=== PATIENT | male | born 1945 | race Caucasian/White ===

== ENCOUNTER 2017-06-08 09:27 | Inpatient (IN) | payer OTHER, MEDICARE ==
[~2017-06-08] VITALS: Ht 177.8 cm; Wt 81.0 kg
[~2017-06-08 09:27] MED LIST: ASPI81CH PO; ATEN25 PO; BUTASPCAFT; FOLI1; HYDACE5; LEVSOD25; LITH300ER PO; LITH450ER; METH10; NIAC500; NITR.4SL SL; OMEPRAZOLE MAGN20 MG PO; PROM25; TEMA30; VENL75; Zocor20 MG PO
[2017-06-08] MEDS ORDERED: AMLO5 PO (09:46)
[2017-06-08] MEDS ORDERED: DULO30 PO (09:48)
[2017-06-08] MEDS ORDERED: GABA600 PO (09:49)
[2017-06-08] MEDS ORDERED: BISA5EC PO (09:50)
[2017-06-08] MEDS ORDERED: AKWA Tears15 ML BOTHEYES (09:51)
[2017-06-08] MEDS ORDERED: OXYC5 PO (09:52)
[2017-06-08] MEDS ORDERED: GAVILAX17 GM PO (09:53)
[2017-06-08] MEDS ORDERED: Viagra100 MG PO (09:55)
[2017-06-08] MEDS ORDERED: AZIT250 PO (09:57)
[2017-06-08] MEDS ORDERED: Tessalon200 MG PO (09:58)
[2017-06-08] MEDS ORDERED: Acetaminophen-1 EAC1 PO (09:59)
[2017-06-08] MEDS ORDERED: Ceftriaxon1 GM/50 ML IV (10:00)
[2017-06-08] MEDS ORDERED: ENOX40I SC (10:01)
[2017-06-08] MEDS ORDERED: NICO21TP TD (10:02)
[2017-06-08 10:14] LABS: BASOPHILS ABSOLUTE AUTO 0.03 K/mm3 (0.00-0.23); BASOPHILS PERCENT AUTO 0 % (0-2); EOSINOPHILS PERCENT AUTO 0 % (0-6); Hematocrit 32.7 % (37.0-53.0); Hemoglobin 10.8 g/dL (13.5-17.5); IMMATURE GRAN ABSOLUTE AUTO 0.36 K/mm3 (0.00-0.10); IMMATURE GRAN PERCENT AUTO 3 % (0-1); LYMPHOCYTES ABSOLUTE AUTO 1.39 K/mm3 (0.84-5.20); LYMPHOCYTES PERCENT AUTO 10 % (21-46); MONOCYTES ABSOLUTE AUTO 1.55 K/mm3 (0.16-1.47); MONOCYTES PERCENT AUTO 11 % (4-13); Mean Corpuscular HGB 30.7 pg (26.0-34.0); Mean Corpuscular Volume 93 fL (80-100); Mean Platelet Volume 9.1 fL (9.1-12.4); NEUTROPHILS PERCENT AUTO 77 % (41-73); Platelet Count 379 K/mm3 (150-400); RDW Coefficient Variation 14.8 % (11.7-14.2); RDW Standard Deviation 50.9 fL (35.1-46.3); Red Blood Cell Count 3.52 M/mm3 (4.30-5.90); White Blood Cell Count 14.23 K/mm3 (4.00-11.30)
[2017-06-08] MEDS ORDERED: POTCHL20ER PO (10:25)
[2017-06-08 10:27] LABS: Anion Gap 9 mmol/L (6-16); Blood Urea Nitrogen 3 mg/dL (8-24); Bun/Creatinine Ratio 6.3 (12.0-20.0); CO2, Blood 26 mmol/L (21-32); Calcium, Blood 7.9 mg/dL (8.5-10.1); Chloride, Blood 106 mmol/L (98-108); Creatinine, Blood 0.48 mg/dL (0.60-1.20); Glomerular Filtration Rate >60 (60-); Glucose, Blood 104 mg/dL (70-99); Potassium, Blood 3.1 mmol/L (3.5-5.5); Sodium, Blood 141 mmol/L (136-145)
[2017-06-08] MEDS ORDERED: 1/2 NS 250ml250 ML IV (10:28)
[2017-06-08] MEDS ORDERED: CHILD MUCUS RE118 ML PO (10:30)
[2017-06-08] MEDS ORDERED: ALBU3IS INH (10:30)
[2017-06-09 04:43] LABS: BASOPHILS ABSOLUTE AUTO 0.03 K/mm3 (0.00-0.23); BASOPHILS PERCENT AUTO 0 % (0-2); EOSINOPHILS PERCENT AUTO 0 % (0-6); Hematocrit 33.9 % (37.0-53.0); Hemoglobin 11.2 g/dL (13.5-17.5); IMMATURE GRAN ABSOLUTE AUTO 0.44 K/mm3 (0.00-0.10); IMMATURE GRAN PERCENT AUTO 3 % (0-1); LYMPHOCYTES ABSOLUTE AUTO 0.88 K/mm3 (0.84-5.20); LYMPHOCYTES PERCENT AUTO 6 % (21-46); MONOCYTES ABSOLUTE AUTO 0.48 K/mm3 (0.16-1.47); MONOCYTES PERCENT AUTO 3 % (4-13); Mean Corpuscular HGB 30.6 pg (26.0-34.0); Mean Corpuscular Volume 93 fL (80-100); Mean Platelet Volume 8.8 fL (9.1-12.4); NEUTROPHILS PERCENT AUTO 88 % (41-73); Platelet Count 458 K/mm3 (150-400); RDW Coefficient Variation 14.7 % (11.7-14.2); RDW Standard Deviation 50.8 fL (35.1-46.3); Red Blood Cell Count 3.66 M/mm3 (4.30-5.90); White Blood Cell Count 14.83 K/mm3 (4.00-11.30)
[2017-06-09 05:08] LABS: Alanine Aminotransfer (ALT/SGP 60 U/L (12-78); Albumin/Globulin Ratio 0.4 (0.8-1.8); Alk Phos 65 U/L (50-136); Anion Gap 7 mmol/L (6-16); Aspartate Aminotrans (AST/SGOT 40 U/L (12-37); Bilirubin, Total 0.5 mg/dL (0.1-1.0); Blood Urea Nitrogen 11 mg/dL (8-24); Bun/Creatinine Ratio 23.4 (12.0-20.0); CHOL/HDL RATIO 8.3; CO2, Blood 27 mmol/L (21-32); Calcium, Blood 8.3 mg/dL (8.5-10.1); Chloride, Blood 104 mmol/L (98-108); Cholesterol 125 mg/dL (50-200); Creatinine, Blood 0.47 mg/dL (0.60-1.20); Globulin, Blood 5.1 g/dL (2.2-4.0); Glomerular Filtration Rate >60 (60-); Glucose, Blood 135 mg/dL (70-99); HDL Cholesterol 15 mg/dL (>39); LDL/HDL RATIO 5.5; Low Density Lipoprotein Chol 83 mg/dL (0-110); Magnesium, Blood 2.3 mg/dL (1.6-2.4); Sodium, Blood 138 mmol/L (136-145); Total Protein, Blood 7.1 g/dL (6.4-8.2); Triglycerides 135 mg/dL (30-160); Very Low Density Lipoprot Chol 27 mg/dL (6-32)
[2017-06-09 05:16] LABS: Thyroid Stimulating Hormone 0.137 uIU/mL (0.360-4.800)
[2017-06-09 14:46] LABS: Free Thyroxine 1.13 ng/dL (0.70-1.60)
[2017-06-09 14:50] LABS: Triiodothyronine, Free 1.08 pg/mL (2.18-3.98)
[2017-06-10 05:11] LABS: Hematocrit 33.7 % (37.0-53.0); Mean Corpuscular HGB 30.7 pg (26.0-34.0); Mean Corpuscular HGB Conc 32.6 g/dL (31.5-36.5); Mean Corpuscular Volume 94 fL (80-100); Mean Platelet Volume 8.9 fL (9.1-12.4); Platelet Count 530 K/mm3 (150-400); RDW Coefficient Variation 14.7 % (11.7-14.2); RDW Standard Deviation 51.9 fL (35.1-46.3); Red Blood Cell Count 3.58 M/mm3 (4.30-5.90); White Blood Cell Count 24.37 K/mm3 (4.00-11.30)
[2017-06-10 05:33] LABS: Anion Gap 7 mmol/L (6-16); Blood Urea Nitrogen 20 mg/dL (8-24); CO2, Blood 26 mmol/L (21-32); Calcium, Blood 8.1 mg/dL (8.5-10.1); Chloride, Blood 105 mmol/L (98-108); Creatinine, Blood 0.53 mg/dL (0.60-1.20); Glomerular Filtration Rate >60 (60-); Glucose, Blood 180 mg/dL (70-99); Potassium, Blood 4.1 mmol/L (3.5-5.5); Sodium, Blood 138 mmol/L (136-145)
[2017-06-11 05:18] LABS: BASOPHILS ABSOLUTE AUTO 0.03 K/mm3 (0.00-0.23); BASOPHILS PERCENT AUTO 0 % (0-2); EOSINOPHILS PERCENT AUTO 0 % (0-6); Hematocrit 33.5 % (37.0-53.0); Hemoglobin 10.7 g/dL (13.5-17.5); IMMATURE GRAN ABSOLUTE AUTO 0.63 K/mm3 (0.00-0.10); IMMATURE GRAN PERCENT AUTO 3 % (0-1); LYMPHOCYTES ABSOLUTE AUTO 0.91 K/mm3 (0.84-5.20); LYMPHOCYTES PERCENT AUTO 5 % (21-46); MONOCYTES ABSOLUTE AUTO 0.65 K/mm3 (0.16-1.47); MONOCYTES PERCENT AUTO 3 % (4-13); Mean Corpuscular HGB 30.3 pg (26.0-34.0); Mean Corpuscular HGB Conc 31.9 g/dL (31.5-36.5); Mean Corpuscular Volume 95 fL (80-100); Mean Platelet Volume 8.8 fL (9.1-12.4); NEUTROPHILS ABSOLUTE AUTO 18.22 K/mm3 (1.96-9.15); NEUTROPHILS PERCENT AUTO 89 % (41-73); Platelet Count 528 K/mm3 (150-400); RDW Standard Deviation 52.8 fL (35.1-46.3); Red Blood Cell Count 3.53 M/mm3 (4.30-5.90); White Blood Cell Count 20.44 K/mm3 (4.00-11.30)
[2017-06-11 05:47] LABS: Anion Gap 8 mmol/L (6-16); Blood Urea Nitrogen 22 mg/dL (8-24); Bun/Creatinine Ratio 37.4 (12.0-20.0); CO2, Blood 25 mmol/L (21-32); Calcium, Blood 8.1 mg/dL (8.5-10.1); Chloride, Blood 103 mmol/L (98-108); Creatinine, Blood 0.59 mg/dL (0.60-1.20); Glomerular Filtration Rate >60 (60-); Glucose, Blood 136 mg/dL (70-99); Potassium, Blood 4.4 mmol/L (3.5-5.5); Sodium, Blood 136 mmol/L (136-145)
[2017-06-13 04:36] LABS: Hemoglobin 11.6 g/dL (13.5-17.5); Mean Corpuscular HGB 30.4 pg (26.0-34.0); Mean Corpuscular HGB Conc 32.2 g/dL (31.5-36.5); Mean Corpuscular Volume 95 fL (80-100); Mean Platelet Volume 8.8 fL (9.1-12.4); Platelet Count 558 K/mm3 (150-400); RDW Coefficient Variation 14.6 % (11.7-14.2); Red Blood Cell Count 3.81 M/mm3 (4.30-5.90); White Blood Cell Count 19.58 K/mm3 (4.00-11.30)
[2017-06-13 05:00] LABS: Anion Gap 7 mmol/L (6-16); Blood Urea Nitrogen 24 mg/dL (8-24); Bun/Creatinine Ratio 39.9 (12.0-20.0); CO2, Blood 28 mmol/L (21-32); Chloride, Blood 102 mmol/L (98-108); Glomerular Filtration Rate >60 (60-); Glucose, Blood 103 mg/dL (70-99); Potassium, Blood 4.2 mmol/L (3.5-5.5); Sodium, Blood 137 mmol/L (136-145)
[2017-06-13] MEDS ORDERED: GABA300 PO (11:01)
[2017-06-13] MEDS ORDERED: Acidophilus La1 EACH PO (11:18)
[2017-06-13] MEDS ORDERED: PRED10 PO (11:21)
[2017-06-13] MEDS ORDERED: ALBU90OI6 INH (11:22)
[2017-06-13] MEDS ORDERED: BUDE.5 INH (11:24)
[2017-06-13] MEDS ORDERED: TIOT18 INH (11:25)
[2017-06-13] MEDS ORDERED: LEVFLO500 PO (11:25)
== END 2017-06-13 14:45 | disposition home or self-care (01) | DRG 193 ==
LOC: ER 09:27 → MEDS 12:12 → ENPENDDIS 06-13 09:05 → MEDS 06-13 14:45
PROVIDERS: Emergency Medicine; Internal Medicine
DX: J18.9 Pneumonia, unspecified organism (principal); J96.01 Acute respiratory failure with hypoxia; G71.0 Muscular dystrophy; J44.0 Chronic obstructive pulmonary disease with (acute) lower respiratory infection; J44.1 Chronic obstructive pulmonary disease with (acute) exacerbation; K52.1 Toxic gastroenteritis and colitis; E03.9 Hypothyroidism, unspecified; K21.9 Gastro-esophageal reflux disease without esophagitis; R53.81 Other malaise; G89.4 Chronic pain syndrome; E87.6 Hypokalemia; D64.9 Anemia, unspecified; I25.10 Atherosclerotic heart disease of native coronary artery without angina pectoris; I73.9 Peripheral vascular disease, unspecified; I10 Essential (primary) hypertension; E78.5 Hyperlipidemia, unspecified; J84.10 Pulmonary fibrosis, unspecified; T36.95XA Adverse effect of unspecified systemic antibiotic, initial encounter; F31.9 Bipolar disorder, unspecified; Z87.891 Personal history of nicotine dependence; Z79.82 Long term (current) use of aspirin; Z79.899 Other long term (current) drug therapy; Z88.8 Allergy status to other drugs, medicaments and biological substances
CPT/HCPCS: 36415; 71260; 80048; 80053; 80061; 83605; 83735; 84439; 84443; 84481; 85025; 85027; 87040; 87070; 87205; 87493; 94640; 94667; 94760; 97161; 97165; 97530; 99285; G8978; G8979; G8987; G8988; G8989; J1650; J1956; J2930; Q9967

== ENCOUNTER 2021-07-08 16:43 | Inpatient (IN) | payer OTHER ==
[~2021-07-08] VITALS: Ht 177.8 cm; Wt 83.2 kg
[~2021-07-08 16:43] MED LIST changes: +1/2 NS 250ml250 ML IV; +AKWA Tears15 ML BOTHEYES; +ALBU2.5V5 INH; +ALBU90OI6 INH; +AMLO5 PO; +AZIT250 PO; +Acetaminophen-1 EAC1 PO; +Acidophilus La1 EACH PO; +BISA5EC PO; +BUDE.5 INH; +CHILD MUCUS RE118 ML PO; +Ceftriaxon1 GM/50 ML IV; +DULO30 PO; +ENOX40I SC; +GABA300 PO; +GABA600 PO; +GAVILAX17 GM PO; +LEVFLO500 PO; +NICO21TP TD; +OXYC5 PO; +POTCHL20ER PO; +PRED10 PO; +TIOT18 INH; +Tessalon200 MG PO; +Viagra100 MG PO
[2021-07-08 17:28] LABS: BASOPHILS ABSOLUTE AUTO 0.02 K/mm3 (0.00-0.23); BASOPHILS PERCENT AUTO 0 % (0-2); EOSINOPHILS PERCENT AUTO 0 % (0-6); Hematocrit 43.4 % (37.0-53.0); Hemoglobin 13.6 g/dL (13.5-17.5); IMMATURE GRAN ABSOLUTE AUTO 0.09 K/mm3 (0.00-0.10); IMMATURE GRAN PERCENT AUTO 1 % (0-1); LYMPHOCYTES ABSOLUTE AUTO 0.93 K/mm3 (0.84-5.20); LYMPHOCYTES PERCENT AUTO 6 % (21-46); MONOCYTES ABSOLUTE AUTO 0.88 K/mm3 (0.16-1.47); MONOCYTES PERCENT AUTO 5 % (4-13); Mean Corpuscular HGB 29.2 pg (26.0-34.0); Mean Corpuscular HGB Conc 31.3 g/dL (31.5-36.5); Mean Corpuscular Volume 93 fL (80-100); Mean Platelet Volume 9.7 fL (9.1-12.4); NEUTROPHILS ABSOLUTE AUTO 14.78 K/mm3 (1.96-9.15); NEUTROPHILS PERCENT AUTO 89 % (41-73); Platelet Count 267 K/mm3 (150-400); RDW Coefficient Variation 13.5 % (11.7-14.2); RDW Standard Deviation 46.6 fL (35.1-46.3); Red Blood Cell Count 4.65 M/mm3 (4.30-5.90)
[2021-07-08 17:45] LABS: Alanine Aminotransfer (ALT/SGP 20 U/L (12-78); Albumin, Blood 3.5 g/dL (3.4-5.0); Albumin/Globulin Ratio 0.9 (0.8-1.8); Alk Phos 68 U/L (50-136); Anion Gap 5 mmol/L (6-16); Aspartate Aminotrans (AST/SGOT 14 U/L (12-37); Bilirubin, Total 1.1 mg/dL (0.1-1.0); Blood Urea Nitrogen 17 mg/dL (8-24); Bun/Creatinine Ratio 25.8 (12.0-20.0); CO2, Blood 25 mmol/L (21-32); Calcium, Blood 8.7 mg/dL (8.5-10.1); Chloride, Blood 114 mmol/L (98-108); Creatinine, Blood 0.66 mg/dL (0.60-1.20); Globulin, Blood 3.7 g/dL (2.2-4.0); Glomerular Filtration Rate >60 (60-); Glucose, Blood 145 mg/dL (70-99); Potassium, Blood 3.6 mmol/L (3.5-5.5); Sodium, Blood 144 mmol/L (136-145); Total Protein, Blood 7.2 g/dL (6.4-8.2)
[2021-07-08 18:04] LABS: Influenza A, PCR NEGATIVE (NEGATIVE); Influenza B, PCR NEGATIVE (NEGATIVE); Resp Syncytial Virus, PCR NEGATIVE (NEGATIVE); SARS-Cov-2 (COVID-19) PCR, MMC NEGATIVE (NEGATIVE)
--- NOTE | 2021-07-08 22:48 | NUR ---
Report received from Alesia ONEILL from ED Patient arrived to room 354 on [address], independent transfer from stretcher to bed. Patient is A/O X4, baseline 2.5 L 02 Patient oriented to room, call light system, bed alarm activated requested patient to call allowing staff to supervise ambulation prior to allowing ADLIB mobilization.
--- NOTE | 2021-07-09 03:05 | NUR ---
([id number]) When completing admission assessment post transfer to unit from ED, patient reported taking personal supply of home oxycodone in Emergency Dept. Patient informs oxycodone was in his shirt pocket and he took 2-3 tablets of 5mg Oxycodone at approximately 2000. Vital signs stable, A/0 X4. Education provided of hospital policy of taking home supply medication. Patient reported no additional medication in personal posession and agreed to comply in not taking home supply external source medications while in hospital. notified ([id number])
--- NOTE | 2021-07-09 03:40 | NUR ---
Patient ambulatory, A/0 X4, complained of chronic pain during shift 9/10 back pain and acute headache. Pain relieved with Oxycodone and Acetaminophen. Adequate intake- Pt ate 100% of meal (Tet[place] sandwich & Jello) 500 ml water Vitals remained stable. Patient able to rest comfortably throughout the night.
[2021-07-09 05:13] LABS: BASOPHILS ABSOLUTE AUTO 0.05 K/mm3 (0.00-0.23); BASOPHILS PERCENT AUTO 0 % (0-2); EOSINOPHILS ABSOLUTE AUTO 0.04 K/mm3 (0.00-0.68); EOSINOPHILS PERCENT AUTO 0 % (0-6); Hematocrit 38.7 % (37.0-53.0); Hemoglobin 12.4 g/dL (13.5-17.5); IMMATURE GRAN ABSOLUTE AUTO 0.16 K/mm3 (0.00-0.10); IMMATURE GRAN PERCENT AUTO 1 % (0-1); LYMPHOCYTES PERCENT AUTO 13 % (21-46); MONOCYTES ABSOLUTE AUTO 1.33 K/mm3 (0.16-1.47); MONOCYTES PERCENT AUTO 7 % (4-13); Mean Corpuscular HGB 29.7 pg (26.0-34.0); Mean Corpuscular Volume 93 fL (80-100); Mean Platelet Volume 10.1 fL (9.1-12.4); NEUTROPHILS PERCENT AUTO 79 % (41-73); Platelet Count 245 K/mm3 (150-400); RDW Coefficient Variation 13.6 % (11.7-14.2); RDW Standard Deviation 46.4 fL (35.1-46.3); Red Blood Cell Count 4.17 M/mm3 (4.30-5.90); White Blood Cell Count 20.58 K/mm3 (4.00-11.30)
[2021-07-09 05:40] LABS: Anion Gap 5 mmol/L (6-16); Blood Urea Nitrogen 18 mg/dL (8-24); Bun/Creatinine Ratio 30.3 (12.0-20.0); CO2, Blood 26 mmol/L (21-32); Calcium, Blood 8.3 mg/dL (8.5-10.1); Chloride, Blood 111 mmol/L (98-108); Creatinine, Blood 0.59 mg/dL (0.60-1.20); Glomerular Filtration Rate >60 (60-); Glucose, Blood 99 mg/dL (70-99); Potassium, Blood 3.5 mmol/L (3.5-5.5); Sodium, Blood 142 mmol/L (136-145)
--- NOTE | 2021-07-09 17:04 | NUR ---
SHIFT SUMMARY PATIENT IS ALERT AND ORIENTED X4. PATIENT IS PLEASENT AND COOPERATIVE WITH CARE. PATIENT IS ON HIS BASELINE OF 2.5L O2. PATIENT IS ADMITTED FOR PNUMONIA. PATIENT HAS CHRONIC PAIN IN HIS LEGS AND BACK. MEDICATED PER EMAR. PATIENT HAS BEEN MEDICATED FOR PAIN BUT NO OTHER COMPLAINTS OF NAUSEA, SOB OR VOMITTING THIS SHIFT. VITAL SIGNS REVIEWED. NO ACUTE EVENTS THIS SHIFT. BED IN LOWEST AND LOCKED POSITION. BED ALARM IS ON. CALL LIGHT IN PLACE. WILL MONITOR UNTIL SHIFT CHANGE.
[2021-07-10 05:21] LABS: BASOPHILS ABSOLUTE AUTO 0.02 K/mm3 (0.00-0.23); BASOPHILS PERCENT AUTO 0 % (0-2); EOSINOPHILS ABSOLUTE AUTO 0.12 K/mm3 (0.00-0.68); EOSINOPHILS PERCENT AUTO 1 % (0-6); Hemoglobin 12.6 g/dL (13.5-17.5); IMMATURE GRAN ABSOLUTE AUTO 0.04 K/mm3 (0.00-0.10); IMMATURE GRAN PERCENT AUTO 0 % (0-1); LYMPHOCYTES ABSOLUTE AUTO 2.48 K/mm3 (0.84-5.20); LYMPHOCYTES PERCENT AUTO 21 % (21-46); MONOCYTES ABSOLUTE AUTO 0.91 K/mm3 (0.16-1.47); MONOCYTES PERCENT AUTO 8 % (4-13); Mean Corpuscular HGB 29.2 pg (26.0-34.0); Mean Corpuscular HGB Conc 30.7 g/dL (31.5-36.5); Mean Corpuscular Volume 95 fL (80-100); Mean Platelet Volume 9.9 fL (9.1-12.4); NEUTROPHILS PERCENT AUTO 70 % (41-73); Platelet Count 246 K/mm3 (150-400); RDW Coefficient Variation 13.7 % (11.7-14.2); RDW Standard Deviation 48.1 fL (35.1-46.3); Red Blood Cell Count 4.32 M/mm3 (4.30-5.90); White Blood Cell Count 11.87 K/mm3 (4.00-11.30)
--- NOTE | 2021-07-10 05:39 | NUR ---
SHIFT SUMMARY: RESPIRATORY STATUS STABLE DURING SHIFT, CONTINUED ON 2.5L O2 (BASELINE). PT REPORTED CONTINUED CHRONIC BACK PAIN DURING THE NIGHT, DECLINED PAIN MEDICATIONS/INTERVENTIONS, AGREED TO INFORM WHEN NEEDING FURTHER PAIN MEDICATIONS. VITALS REMAINED STABLE THROUGHOUT SHIFT. PATIENT AMBULATORY TO BATHROOM INDEPENDENTLY, STABLE ON FEET NO DIZZYNESS. PATIENT RESTED OFF/ON THROUGHOUT SHIFT.
[2021-07-10 05:42] LABS: Alanine Aminotransfer (ALT/SGP 17 U/L (12-78); Albumin/Globulin Ratio 0.8 (0.8-1.8); Alk Phos 60 U/L (50-136); Anion Gap 6 mmol/L (6-16); Aspartate Aminotrans (AST/SGOT 12 U/L (12-37); Bilirubin, Total 1.3 mg/dL (0.1-1.0); Blood Urea Nitrogen 14 mg/dL (8-24); Bun/Creatinine Ratio 23.3 (12.0-20.0); CO2, Blood 26 mmol/L (21-32); Calcium, Blood 8.8 mg/dL (8.5-10.1); Chloride, Blood 110 mmol/L (98-108); Glomerular Filtration Rate >60 (60-); Glucose, Blood 86 mg/dL (70-99); Potassium, Blood 3.5 mmol/L (3.5-5.5); Sodium, Blood 142 mmol/L (136-145)
--- NOTE | 2021-07-10 07:51 | NUR ---
MAI recvd handoff patient care from MAI Humphries Patient was awake and complained that he was cold. RN put a warm blanket on him. He was thankful and had no more requests
--- NOTE | 2021-07-10 16:48 | NUR ---
Patient was alert and orient, He had requests to turn up the heat because he "was cold all night". Patient was indep with cares only putting on the light for minimum needs. Patient was compliant with taking medications and requested prn Oxycodone for pain. Patient appetite was fair, He stayed in the bed and napped throughout the shift. He was able to tranfer indep to the chair and back to the bed
--- NOTE | 2021-07-11 04:49 | NUR ---
PATIENT REMAINED ON 2.5 L 02- BASELINE HOME A/O X4, INDEPENDENT AMBULATION TO AND FROM BATHROOM CHRONIC PAIN MANAGED WITH OXYCODONE- ONLY REQUIRED 1X DOSE, DECLINED FURTHER PAIN MED INTERVENTIONS THROUGHOUT SHIFT.
--- NOTE | 2021-07-11 08:02 | NUR ---
MAI recvd handoff of patient care from MAI Humphries Patient was awake and alert. He had no requests at this time
[2021-07-11 08:20] LABS: Hemoglobin 12.7 g/dL (13.5-17.5); Mean Corpuscular HGB 29.3 pg (26.0-34.0); Mean Corpuscular HGB Conc 31.8 g/dL (31.5-36.5); Mean Corpuscular Volume 92 fL (80-100); Mean Platelet Volume 9.5 fL (9.1-12.4); Platelet Count 267 K/mm3 (150-400); RDW Coefficient Variation 13.2 % (11.7-14.2); RDW Standard Deviation 44.8 fL (35.1-46.3); Red Blood Cell Count 4.34 M/mm3 (4.30-5.90); White Blood Cell Count 10.59 K/mm3 (4.00-11.30)
[2021-07-11] MEDS ORDERED: AZIT250 PO (11:54)
[2021-07-11] MEDS ORDERED: BENZ100A PO (11:55)
[2021-07-11] MEDS ORDERED: CEFD300 PO (11:55)
[2021-07-11] MEDS ORDERED: GUAI600T33 PO (11:56)
[2021-07-11] MEDS ORDERED: ONDA4ODT MM (11:56)
[2021-07-11] MEDS ORDERED: MIRALAX17 GM PO (11:57)
--- NOTE | 2021-07-11 14:08 | NUR ---
Patient was alert and orient, he was able to express his needs by using the call light. Patient was indep in the room with his cares. He was continent of bowel and bladder. He is on oxygen 2.5L which is also his baseline. He had no complaints of pain, Continued to antibiotics IV and will continue on oral antibiotics when he discharges. Patient will be discharging today and will pick him up this afternoon
--- NOTE | 2021-07-11 14:47 | NUR ---
Patient was dicharged to home,, accompanied off of the unit by and RN. RN reviewed discharge instructions and medication list. Patient had no further questions and was appropriate for discharge. IV was removed and belongings were packed in a bag.
== END 2021-07-11 14:36 | disposition home or self-care (01) | DRG 871 ==
LOC: ER 16:43 → MEDS 19:10
PROVIDERS: Internal Medicine; Physician Assistant; ADMIT Internal Medicine
PROC: 3E02329 Introduction of Other Anti-infective into Muscle, Percutaneous Approach (ICD-10-PCS; principal; 2021-07-09)
PROC: 3E0337Z Introduction of Electrolytic and Water Balance Substance into Peripheral Vein, Percutaneous Approach (ICD-10-PCS; 2021-07-09)
DX: A41.9 Sepsis, unspecified organism (principal); J18.9 Pneumonia, unspecified organism; J96.11 Chronic respiratory failure with hypoxia; I73.9 Peripheral vascular disease, unspecified; E78.5 Hyperlipidemia, unspecified; I25.10 Atherosclerotic heart disease of native coronary artery without angina pectoris; J44.9 Chronic obstructive pulmonary disease, unspecified; F32.A Depression, unspecified; Z90.49 Acquired absence of other specified parts of digestive tract; D72.829 Elevated white blood cell count, unspecified; Z20.822 Contact with and (suspected) exposure to COVID-19
CPT/HCPCS: 0241U; 36415; 71046; 80048; 80053; 85025; 85027; 87070; 87205; 94640; 94760; 96365; 96375; 99285-25; A9270; J0456; J0696; J1650; J2405; J7050

== ENCOUNTER 2021-11-14 23:59 | Emergency (ER) | payer OTHER ==
[~2021-11-14] VITALS: Ht 177.8 cm; Wt 68.0 kg
[~2021-11-14 23:59] MED LIST changes: +BENZ100A PO; +CEFD300 PO; +DOXY100 PO; +GUAI600T33 PO; +MIRALAX17 GM PO; +ONDA4ODT MM; +PRED20 PO
[2021-11-15 00:42] LABS: BASOPHILS ABSOLUTE AUTO 0.03 K/mm3 (0.00-0.23); BASOPHILS PERCENT AUTO 0 % (0-2); EOSINOPHILS ABSOLUTE AUTO 0.08 K/mm3 (0.00-0.68); EOSINOPHILS PERCENT AUTO 1 % (0-6); Hematocrit 43.8 % (37.0-53.0); Hemoglobin 14.2 g/dL (13.5-17.5); IMMATURE GRAN PERCENT AUTO 1 % (0-1); LYMPHOCYTES ABSOLUTE AUTO 1.52 K/mm3 (0.84-5.20); LYMPHOCYTES PERCENT AUTO 10 % (21-46); MONOCYTES ABSOLUTE AUTO 1.23 K/mm3 (0.16-1.47); MONOCYTES PERCENT AUTO 8 % (4-13); Mean Corpuscular HGB 29.1 pg (26.0-34.0); Mean Corpuscular HGB Conc 32.4 g/dL (31.5-36.5); Mean Corpuscular Volume 90 fL (80-100); Mean Platelet Volume 9.7 fL (9.1-12.4); NEUTROPHILS ABSOLUTE AUTO 12.48 K/mm3 (1.96-9.15); NEUTROPHILS PERCENT AUTO 80 % (41-73); Platelet Count 240 K/mm3 (150-400); RDW Coefficient Variation 15.3 % (11.7-14.2); RDW Standard Deviation 50.5 fL (35.1-46.3); Red Blood Cell Count 4.88 M/mm3 (4.30-5.90); White Blood Cell Count 15.54 K/mm3 (4.00-11.30)
[2021-11-15 01:03] LABS: Albumin, Blood 3.1 g/dL (3.4-5.0); Albumin/Globulin Ratio 0.9 (0.8-1.8); Bilirubin, Total 0.9 mg/dL (0.1-1.0); Bun/Creatinine Ratio 35.5 (12.0-20.0); Calcium, Blood 8.3 mg/dL (8.5-10.1); Creatinine, Blood 0.59 mg/dL (0.60-1.20); Globulin, Blood 3.6 g/dL (2.2-4.0); Potassium, Blood 3.6 mmol/L (3.5-5.5); Total Protein, Blood 6.7 g/dL (6.4-8.2)
[2021-11-15] MEDS ORDERED: AMOCLA875 PO ×2 (01:42→01:43)
== END 2021-11-15 02:10 | disposition home or self-care (01) ==
LOC: ER 23:59
PROVIDERS: Anesthesiology
DX: J44.1 Chronic obstructive pulmonary disease with (acute) exacerbation (principal); J18.9 Pneumonia, unspecified organism; I10 Essential (primary) hypertension; I25.10 Atherosclerotic heart disease of native coronary artery without angina pectoris; Z79.899 Other long term (current) drug therapy; Z79.82 Long term (current) use of aspirin; Z87.891 Personal history of nicotine dependence
CPT/HCPCS: 71045; 80053; 83880; 84484; 85025; 93005; 93010; 94640; 94664; A9270; J1100

== ENCOUNTER 2023-06-16 16:33 | Inpatient (IN) | payer OTHER ==
[~2023-06-16] VITALS: Ht 182.9 cm; Wt 84.5 kg
[~2023-06-16 16:33] MED LIST changes: +AMOCLA875 PO
[2023-06-16] MEDS ORDERED: Albuterol 2.5 MG/3 ML VIAL INH SCH (17:10)
[2023-06-16 17:28] LABS: Hematocrit 37.9 % (37.0-53.0); Hemoglobin 11.9 g/dL (13.5-17.5); Mean Corpuscular HGB 27.9 pg (26.0-34.0); Mean Corpuscular HGB Conc 31.4 g/dL (31.5-36.5); Mean Corpuscular Volume 89 fL (80-100); Mean Platelet Volume 9.6 fL (9.1-12.4); Platelet Count 310 K/mm3 (150-400); RDW Coefficient Variation 14.6 % (11.7-14.2); RDW Standard Deviation 47.7 fL (35.1-46.3); Red Blood Cell Count 4.27 M/mm3 (4.30-5.90); White Blood Cell Count 10.08 K/mm3 (4.00-11.30)
[2023-06-16 17:48] LABS: Albumin, Blood 2.6 g/dL (3.4-5.0); Albumin/Globulin Ratio 0.5 (0.8-1.8); Bun/Creatinine Ratio 36.9 (12.0-20.0); Calcium, Blood 8.7 mg/dL (8.5-10.1); Creatinine, Blood 0.79 mg/dL (0.60-1.20); Potassium, Blood 3.2 mmol/L (3.5-5.5); Total Protein, Blood 7.6 g/dL (6.4-8.2)
[2023-06-16 17:49] LABS: BAND PERCENT MAN 5 % (0-8); BASOPHILS PERCENT MAN 1 % (0-2); EOSINOPHILS PERCENT MAN 0 % (0-6); LYMPHOCYTES ABSOLUTE MAN 1.61 K/mm3 (0.84-5.20); LYMPHOCYTES PERCENT MAN 16 % (21-46); MONOCYTES PERCENT MAN 5 % (4-13); NEUTROPHILS ABSOLUTE MAN 7.86 K/mm3 (1.96-9.15); SEG NEUTROPHILS PERCENT MAN 73 % (41-73); TOTAL CELLS COUNTED 100
[2023-06-16] MEDS ORDERED: NS 1,000 ML IV SCH (18:15)
[2023-06-16] MEDS ORDERED: FLU VACC QS2023-24(6MOS UP)/PF 60 MCG/0.5 ML SYRINGE IM SCH (19:15)
[2023-06-16] MEDS ORDERED: Acetaminophen 325 MG TABLET PO PRN (19:15)
[2023-06-16] MEDS ORDERED: Albuterol 2.5 MG/3 ML VIAL INH PRN (19:20)
[2023-06-16] MEDS ORDERED: MethylPREDNISolone Sod Succ 125 MG Vial IV ONE (19:20)
[2023-06-16] MEDS ORDERED: Ipratropium/Albuterol SulF 2.5-0.5MG/3 ML Amp INH SCH ×2 (19:20→21:05)
[2023-06-16] MEDS ORDERED: Benzonatate 100 MG Cap PO PRN (19:25)
[2023-06-16] MEDS ORDERED: Azithromycin 500 MG in NS 250 ML IV SCH (19:30)
[2023-06-16 19:32] LABS: Base Excess Venous 0.5 mmol/L; Bicarbonate Venous 24.7 mmol/L (24.0-30.0); PCO2 Venous 37.5 mmHg (38-42); pH Blood Venous 7.43 (7.34-7.37)
[2023-06-16] MEDS ORDERED: Atenolol 25 MG Tab PO SCH (20:00)
[2023-06-16] MEDS ORDERED: Potassium Chloride 20 MEQ TabCR PO ONE (20:00)
[2023-06-16 20:04] LABS: Influenza A, PCR NEGATIVE (NEGATIVE); Influenza B, PCR NEGATIVE (NEGATIVE); Resp Syncytial Virus, PCR NEGATIVE (NEGATIVE); SARS-Cov-2 (COVID-19) PCR, MMC NEGATIVE (NEGATIVE)
[2023-06-16] MEDS ORDERED: Gabapentin 300 MG Cap PO SCH (21:00)
[2023-06-16] MEDS ORDERED: GuaiFENesin 600 MG TabCR PO SCH (21:00)
[2023-06-16] MEDS ORDERED: Lactobacil 2-S.Thermo-Bifido 1 1 Cap PO SCH (21:00)
[2023-06-16 21:27] VITALS: BP 147/83
[2023-06-17] MEDS ORDERED: MethylPREDNISolone Sod Succ 125 MG Vial IV SCH
[2023-06-17 02:02] VITALS: BP 144/75
[2023-06-17 06:00] LABS: BASOPHILS ABSOLUTE AUTO 0.03 K/mm3 (0.00-0.23); BASOPHILS PERCENT AUTO 0 % (0-2); Hematocrit 35.3 % (37.0-53.0); Hemoglobin 11.2 g/dL (13.5-17.5); LYMPHOCYTES ABSOLUTE AUTO 0.88 K/mm3 (0.84-5.20); LYMPHOCYTES PERCENT AUTO 10 % (21-46); MONOCYTES ABSOLUTE AUTO 0.38 K/mm3 (0.16-1.47); MONOCYTES PERCENT AUTO 4 % (4-13); Mean Corpuscular HGB 28.1 pg (26.0-34.0); Mean Corpuscular HGB Conc 31.7 g/dL (31.5-36.5); Mean Corpuscular Volume 89 fL (80-100); Mean Platelet Volume 9.9 fL (9.1-12.4); Platelet Count 332 K/mm3 (150-400); RDW Coefficient Variation 14.7 % (11.7-14.2); RDW Standard Deviation 47.8 fL (35.1-46.3); Red Blood Cell Count 3.99 M/mm3 (4.30-5.90); White Blood Cell Count 9.03 K/mm3 (4.00-11.30)
[2023-06-17 06:04] LABS: EOSINOPHILS PERCENT AUTO 0 % (0-6); IMMATURE GRAN ABSOLUTE AUTO 0.06 K/mm3 (0.00-0.10); IMMATURE GRAN PERCENT AUTO 1 % (0-1); NEUTROPHILS ABSOLUTE AUTO 7.68 K/mm3 (1.96-9.15); NEUTROPHILS PERCENT AUTO 85 % (41-73)
--- NOTE | 2023-06-17 06:19 | NUR ---
Shift Summary Pt admitted to this unit from ED with dx of COPD exaserbation and bilateral pnumonia. He is currently on 7.5L O2 high flow NC with moisturizer to maintane O2 saturation of 92%. His baseline at home is 3L O2. Per report from the ED, when he stood up he quickly desaturated town to 70% while on 5L, so he us currently on bedrest. His lungs are coarse and wheezy, he is rcving RT treatments and steriods. Educated on fire safety, pt states he does not have any ignition sources with him. He is on continous pulse ox. He is AOx4, cooperative with care, and continent.
[2023-06-17 06:42] LABS: Bun/Creatinine Ratio 33.6 (12.0-20.0); Calcium, Blood 8.4 mg/dL (8.5-10.1); Creatinine, Blood 0.63 mg/dL (0.60-1.20)
[2023-06-17 07:18] VITALS: BP 141/75
[2023-06-17] MEDS ORDERED: Budesonide 0.5 MG/2 ML RESP INH SCH (07:45)
[2023-06-17] MEDS ORDERED: NS 250 ML IV PRN (08:10)
[2023-06-17] MEDS ORDERED: AmLODIPine Besylate 5 MG Tab PO SCH (09:00)
[2023-06-17] MEDS ORDERED: CefTRIAXone Sodium 1,000 MG in NS 50 ML IV SCH (09:00)
[2023-06-17] MEDS ORDERED: Aspirin 81 MG Chew PO SCH (09:00)
[2023-06-17] MEDS ORDERED: Enoxaparin 40 MG/0.4 ML SYR SC SCH (09:00)
[2023-06-17] MEDS ORDERED: DULoxetine HCL 30 MG Cap DR PO SCH (09:00)
[2023-06-17] MEDS ORDERED: OxyCODONE HCL 5 MG TAB PO PRN (12:50)
--- NOTE | 2023-06-17 15:49 | NUR ---
DR. RED NOTIFIED OF CONCERN FOR PT LETHARGIC AND TEA COLORED URINE. NO NEW ORDERS AT THIS TIME. RN TO ENCOURAGE INCREASE PO INTAKE. ALSO PT PRODUCING SPUTUM. WE WILL GO AHEAD AND CULTURE SPECIMEN
[2023-06-17 16:42] VITALS: BP 141/70
--- NOTE | 2023-06-17 17:59 | NUR ---
PT IS AROUSABLE TO VERBAL STIMULI. LETHARGIC. DECLINED BREAKFAST AND LUNCH. DID TOLORATE FLUIDS. PT IS ABLE TO MAKE NEEDS KNOWN. CALLS APPROPRIATELY. 7L HF NC. SAT>90%. PIVOT TO BEDSIDE COMMODE DUE TO WEAKNESS AND DESATUATION. PT SLEPT FOR MOST OF THE SHIFT. DIAPHORETIC, CLAMMY. VITAL STABLE. PRODUCTIVE COUGH. SPUTUM SAMPLE OBTAINED. ORIENTED X4
[2023-06-17 19:25] VITALS: BP 144/76
[2023-06-17] MEDS ORDERED: Atorvastatin 10 MG Tab PO SCH (21:00)
[2023-06-18 02:22] VITALS: BP 154/80
--- NOTE | 2023-06-18 03:57 | NUR ---
1900: ASSUMED CARE OF PT, BEDSIDE REPORT RECEIVED FROM MAI TAYLOR. PT IS LAYING IN BED WITH HOB ELEVATED, DAUGHTER AT THE BEDSIDE. PT IS DROWSY, ORIENTED X4. DENIES NEEDS AT THIS TIME. DECREASED APPETITE, NO DINNER EATEN. DECREASED URINE OUTPUT, PER REPORT FROM DAY SHIFT RN REPORTED TO PROVIDER DURING THE DAY. PUSHED FLUIDS DURING THE NIGHT. PT SLEPT IN SHORT INTERVALS. AWAKE MUCH THE NIGHT. SAFETY MEASURES TAKEN, ALL NEEDS ADDRESSED.
[2023-06-18 07:54] VITALS: BP 139/79
[2023-06-18] MEDS ORDERED: DEXTROMETHORPHAN/BENZOCAINE 1 EACH LOZENGE MT PRN (09:10)
[2023-06-18 11:14] LABS: Adenovirus Not Detected (NOT DETECT); Bordetella pertussis Not Detected (NOT DETECT); Chlamydophila pneumoniae Not Detected (NOT DETECT); Coronavirus 229E Not Detected (NOT DETECT); Coronavirus HKU1 Not Detected (NOT DETECT); Coronavirus NL63 Not Detected (NOT DETECT); Coronavirus OC43 Not Detected (NOT DETECT); Human Metapneumovirus Not Detected (NOT DETECT); Human Rhinovirus/Enterovirus Not Detected (NOT DETECT); Influenza A/2009-H1 Not Detected (NOT DETECT); Influenza A/H1 Not Detected (NOT DETECT); Influenza A/H3 Not Detected (NOT DETECT); Influenza B Not Detected (NOT DETECT); Mycoplasma pneumoniae Not Detected (NOT DETECT); Parainfluenza Virus 1 Not Detected (NOT DETECT); Parainfluenza Virus 2 Not Detected (NOT DETECT); Parainfluenza Virus 3 Not Detected (NOT DETECT); Parainfluenza Virus 4 Not Detected (NOT DETECT); Respiratory Syncytial Virus Not Detected (NOT DETECT); SARS-Cov-2 (COVID-19), BioFire Not Detected (NOT DETECT)
[2023-06-18 15:27] VITALS: BP 127/74
--- NOTE | 2023-06-18 17:14 | NUR ---
NO ACUTE CHANGES. PT SLEPT FOR MOST OF THIS SHIFT. REPORTS GENERAL MALIASE THAT HAS NOT GOTTEN BETTER IN 2 DAYS SINCE ADMISSION. 6L NC. SBA TO BEDSIDE COMMODE AND USE OF URINAL AT BEDSIDE. TREATED PAIN PER EMAR. PRODUCTIVE COUGH CONTINUES. IV ANTIBIOTICS. ALERT AND ORIENTED X4. ABLE TO MAKE NEEDS KNOWN
[2023-06-18 19:25] VITALS: BP 139/83
[2023-06-18] MEDS ORDERED: GuaiFENesin 600 MG TabCR PO SCH (21:00)
[2023-06-19 02:22] VITALS: BP 142/80
--- NOTE | 2023-06-19 04:08 | NUR ---
1900: ASSUMED CARE OF PT, BEDSIDE REPORT RECEIVED FROM MAI TAYLOR. PT IS A/O X4, BREATHING IS EVEN AND UNLABORED ON 6 LITERS HIGH FLOW NC. OCCATIONAL COUGH, THROUGHT IS SORE, LOZENGES PROVDED NEEDED. PT IS MORE ALERT WITH IMPROVED AFFECT TONIGHT. RR STATUS IS IMPROVING. VSS, MEDICATIONS PROVIDED ORDERED. PT TOLERATED WELL. NO ACUTE EVENTS DURING THE SHIFT. SAFETY MEASURES TAKEN, ALL NEEDS ADDRESSED.
[2023-06-19 06:09] LABS: Bun/Creatinine Ratio 45.3 (12.0-20.0); Calcium, Blood 8.9 mg/dL (8.5-10.1); Creatinine, Blood 0.51 mg/dL (0.60-1.20)
[2023-06-19 07:52] VITALS: BP 154/80
[2023-06-19] MEDS ORDERED: MORP30ER PO (11:41)
[2023-06-19] MEDS ORDERED: OXYC5 PO (11:41)
[2023-06-19] MEDS ORDERED: OxyCODONE HCL 5 MG TAB PO PRN (11:45)
[2023-06-19] MEDS ORDERED: Morphine Sulfate 30 MG TabCR PO SCH (11:45)
[2023-06-19 14:50] VITALS: BP 132/80
--- NOTE | 2023-06-19 16:01 | NUR ---
SHIFT SUMMARY: C/O SEVERE BACK PAIN, CHRONIC FOR HIM; ONLY HAD OXYCODONE 5 MG AND TYLENOL ORDERED. HE TOLD THIS AUTHOR THAT HE TAKES MORPHINE AND OXYCODONE AT HOME. CALLED [facility] TO SEE WHAT PAIN MEDS HE WAS TAKING AT HOME AND THEY CONFIRMED MORPHINE AND OXYCODONE DOSES. REPORTED THIS TO DR. RED WHO GAVE VERBAL ORDER FOR THESE MEDICATIONS. AFTER MEDS ADMINISTERED, HE STATED HIS PAIN WAS DOWN TO 3/10 AND HE WAS FEELING BETTER OVERALL. ON O2 @ 5 L/MIN NC, CONTINUOUS OXIMETRY SHOWS SATS 88-93%. APPETITE IS POOR, BUT FLUID INTAKE HAS BEEN BETTER TODAY. DAUGHTER VISITED THIS AFTERNOON.
[2023-06-19 19:38] VITALS: BP 151/85
[2023-06-19] MEDS ORDERED: MethylPREDNISolone Sod Succ 40 MG VIAL IV SCH (21:00)
[2023-06-20 02:51] VITALS: BP 126/72
--- NOTE | 2023-06-20 06:00 | NUR ---
SHIFT SUMMARY NO ACUTE CHANGES NOTED OVER NIGHT, A&O X4, VSS, O2 @6 L VIA NC, CONT BIOX, SBA TO BSC, TOLERATING PO, VOIDING WNL, PAIN MANAGED PER EMAR, CALLS FOR ASSISTANCE PRN, WATCHING TV THIS AM, PT DID NOT SLEEP WELL, CALL LIGHT IN REACH
[2023-06-20 06:51] LABS: Bun/Creatinine Ratio 36.3 (12.0-20.0); Calcium, Blood 8.3 mg/dL (8.5-10.1); Creatinine, Blood 0.55 mg/dL (0.60-1.20); Potassium, Blood 4.1 mmol/L (3.5-5.5)
[2023-06-20 08:12] VITALS: BP 148/78
[2023-06-20] MEDS ORDERED: Omeprazole 20 MG CapCR PO SCH (09:25)
[2023-06-20 11:38] VITALS: BP 160/84
--- NOTE | 2023-06-20 18:48 | NUR ---
SHIFT SUMMARY: NO ACUTE EVENTS. OXYGEN TITRATED DOWN TO 4 L/MIN NC (BASELINE IS 3 L/MIN NC); LUNG SOUNDS ARE STILL COARSE WITH SCATTERED WHEEZES. OCC COUGH, WHICH HAS IMPROVED FROM YESTERDAY. PAIN IS ADEQUATELY CONTROLLED ON HIS HOME REGIMEN, ALTHOUGH HE IS SOMNOLENT AT TIMES. REFUSING DVT PROPHYLAXIS. PO INTAKE ALSO IMPROVING. USING BSC/URINAL INDEPENDENTLY. DAUGHTER VISITED MOST OF THE DAY.
[2023-06-20 19:58] VITALS: BP 133/78
[2023-06-21 04:47] VITALS: BP 123/75
[2023-06-21 05:04] LABS: Hematocrit 36.8 % (37.0-53.0); Hemoglobin 12.2 g/dL (13.5-17.5); Mean Corpuscular HGB 28.5 pg (26.0-34.0); Mean Corpuscular HGB Conc 33.2 g/dL (31.5-36.5); Mean Corpuscular Volume 86 fL (80-100); Mean Platelet Volume 9.3 fL (9.1-12.4); NRBC ABSOLUTE 0.02 K/mm3 (0.00-0.02); NRBC Auto 0.1 /100 WBC (0.0-0.2); Platelet Count 442 K/mm3 (150-400); RDW Coefficient Variation 15.3 % (11.7-14.2); RDW Standard Deviation 48.2 fL (35.1-46.3); Red Blood Cell Count 4.28 M/mm3 (4.30-5.90); White Blood Cell Count 32.05 K/mm3 (4.00-11.30)
[2023-06-21 05:33] LABS: Bun/Creatinine Ratio 36.3 (12.0-20.0); Calcium, Blood 8.2 mg/dL (8.5-10.1); Creatinine, Blood 0.55 mg/dL (0.60-1.20); Potassium, Blood 4.2 mmol/L (3.5-5.5)
[2023-06-21 05:46] LABS: BAND PERCENT MAN 4 % (0-8); BASOPHILS PERCENT MAN 0 % (0-2); EOSINOPHILS PERCENT MAN 0 % (0-6); LYMPHOCYTES ABSOLUTE MAN 1.28 K/mm3 (0.84-5.20); LYMPHOCYTES PERCENT MAN 4 % (21-46); METAMYELOCYTE ABSOLUTE MAN 0.64 K/mm3 (0.00-0.00); METAMYELOCYTE PERCENT MAN 2 % (0-0); MONOCYTES ABSOLUTE MAN 1.28 K/mm3 (0.16-1.47); MONOCYTES PERCENT MAN 4 % (4-13); MYELOCYTE ABSOLUTE MAN 0.64 K/mm3 (0.00-0.00); MYELOCYTE PERCENT MAN 2 % (0-0); SEG NEUTROPHILS PERCENT MAN 84 % (41-73); TOTAL CELLS COUNTED 100
--- NOTE | 2023-06-21 06:26 | NUR ---
Shift Summary Pt AOx4, cooperative with care. I titrated him up to 6L from 5L overnight because his O2 saturation was staying at 88%. On 6L he was holding at 94%, I moved him back down to 5L this AM. He has chronic back pain, medicated per emar. Pt slept very little tonight, states he sleeps more during the day.
[2023-06-21 07:33] VITALS: BP 133/72
--- NOTE | 2023-06-21 08:00 | NUR ---
PT STATES HE DOES NOT TAKE GABAPENTIN AT HOME ANYMORE- SPOKE TO PT AT THE TIME OF MORNING ASSESSMENT, HE STATED "ITS WEIRD. YOU GUYS WERE NOT GIVING ME MY PAIN MEDS BEFORE BUT YOU'VE BEEN GIVING ME GABAPENTIN ALL ALONG; I DON'T EVEN TAKE GABAPENTIN ANYMORE." UPON FURTHER CONVERSATION THE PT STATES HE IS GETTING HIS PAIN MEDS NOW, BUT HE IS ALSO STILL TAKING GABAPENTIN. PT STATES HE DOES NOT WANT TO TAKE IT IF HE DOES NOT NEED IT. SPOKE TO DR DUGGAN AND RECIEVED AN ORDER TO DC MED.
[2023-06-21 09:17] VITALS: BP 131/72
[2023-06-21 15:17] VITALS: BP 126/76
[2023-06-21] MEDS ORDERED: PredniSONE 20 MG Tab PO SCH (17:00)
--- NOTE | 2023-06-21 19:37 | NUR ---
SHIFT SUMMARY- PT REQUESTED THAT HE BE MADE CONFIDENTIAL. PASSCODE IN THE HARD CHART. HIS DAUGHTER IS POINT OF CONTACT, THE PT STATES HE CAN COMMUNICATE WITH HIS CAREGIVERS IF NEEDED. PT HAS BEEN VERY TIRED TODAY. HE DID SIT UP IN THE CHAIR TODAY FOR 2 HOURS AFTER THERAPY CAME TO SEE HIM, BUT HAS BEEN IN BED SINCE. HE REQUESTED A SHOWER THIS EVENING AT 1830. PASSED ON TO NIGHT FLYING II INSTRUCTOR THAT THE PT WOULD LIKE A SHOWER IF POSSIBLE THIS EVENING. PT HAS BEEN ON 5L VIA NC T/O THE SHIFT SATS 88-94% ON CONT BIOX. PT IN BED, CALL LIGHT IN REACH NO S&S OF DISTRESS NOTED AT THE TIME OF BEDSIDE REPORT.
[2023-06-21 20:14] VITALS: BP 133/74
[2023-06-21] MEDS ORDERED: Sennosides 8.6 MG Tab PO SCH (21:00)
[2023-06-21] MEDS ORDERED: Docusate Sodium 100 MG Cap PO SCH (21:00)
[2023-06-22 02:43] VITALS: BP 131/77
--- NOTE | 2023-06-22 06:20 | NUR ---
SHIFT SUMMARY: PT IS ADMITTED FOR COPD EXACERBATION AND IS A DNR. IS ALERT AND ABLE TO MAKE NEEDS KNOWN. ADLs HAVE BEEN 1P STANDBY WHEN OUT OF BED. DENIES PAIN OR DISCOMFORT OUTSIDE OF BASELINE WHEN ASKED. WAS GIVEN APAP X1. ON 5L OF O2 TO MAINTAIN SPO2 GREATER THAN 88%. HE REPORTS 2L BASELINE WHILE AT HOME. NONPRODUCTIVE COUGH NOTED.
[2023-06-22 06:25] LABS: Hematocrit 36.9 % (37.0-53.0); Hemoglobin 11.9 g/dL (13.5-17.5); Mean Corpuscular HGB 28.3 pg (26.0-34.0); Mean Corpuscular HGB Conc 32.2 g/dL (31.5-36.5); Mean Corpuscular Volume 88 fL (80-100); Mean Platelet Volume 9.5 fL (9.1-12.4); Platelet Count 432 K/mm3 (150-400); RDW Coefficient Variation 15.5 % (11.7-14.2); RDW Standard Deviation 49.3 fL (35.1-46.3); Red Blood Cell Count 4.21 M/mm3 (4.30-5.90); White Blood Cell Count 34.48 K/mm3 (4.00-11.30)
[2023-06-22 06:46] LABS: Bun/Creatinine Ratio 41.2 (12.0-20.0); Calcium, Blood 7.9 mg/dL (8.5-10.1); Creatinine, Blood 0.51 mg/dL (0.60-1.20); Potassium, Blood 4.3 mmol/L (3.5-5.5)
[2023-06-22 07:14] LABS: BAND PERCENT MAN 1 % (0-8); BASOPHILS PERCENT MAN 0 % (0-2); EOSINOPHILS PERCENT MAN 0 % (0-6); LYMPHOCYTES ABSOLUTE MAN 1.37 K/mm3 (0.84-5.20); LYMPHOCYTES PERCENT MAN 4 % (21-46); METAMYELOCYTE ABSOLUTE MAN 0.68 K/mm3 (0.00-0.00); METAMYELOCYTE PERCENT MAN 2 % (0-0); MONOCYTES ABSOLUTE MAN 1.37 K/mm3 (0.16-1.47); MONOCYTES PERCENT MAN 4 % (4-13); NEUTROPHILS ABSOLUTE MAN 31.03 K/mm3 (1.96-9.15); SEG NEUTROPHILS PERCENT MAN 89 % (41-73); TOTAL CELLS COUNTED 100
[2023-06-22 07:32] VITALS: BP 131/73
[2023-06-22] MEDS ORDERED: CefTRIAXone Sodium 1,000 MG in NS 50 ML IV SCH (09:30)
[2023-06-22 16:01] VITALS: BP 128/69
--- NOTE | 2023-06-22 19:55 | NUR ---
NO ACUTE CHANGES. PT EXPERIENCING GENERAL MALIASE. REPORTED FEELING BETTER A FEW DAYS AGO. DAUGHTER ALSO EXPRESSED CONCERN FOR PT AND DECLINE OVER LAST FEW DAYS. UPDATED DAUGHTER OVER THE PHONE. IV ANTIBIOTICS RESUMED. TREATED PAIN PER EMAR. 5L NC. SCHEDULE BREATHING TREATMENTS. HE IS ABLE TO MAKE NEEDS KNOWN. DECLINED SHOWER TODAY DUE TO FEELING VERY UNWELL. ALERT AND ORIENTED X4, FLAT AFFECT, WITHDRAWN. CALM AND COOPERATIVE WITH CARE. THERAPUTIC COMMUNICATION USED TO HELP SUPPORT PT EMOTIONAL NEEDS.
[2023-06-22 20:51] VITALS: BP 128/71
[2023-06-23 03:08] VITALS: BP 124/72
[2023-06-23 04:56] LABS: Hematocrit 39.3 % (37.0-53.0); Hemoglobin 12.8 g/dL (13.5-17.5); Mean Corpuscular HGB 27.8 pg (26.0-34.0); Mean Corpuscular HGB Conc 32.6 g/dL (31.5-36.5); Mean Corpuscular Volume 85 fL (80-100); Mean Platelet Volume 9.2 fL (9.1-12.4); Platelet Count 472 K/mm3 (150-400); RDW Coefficient Variation 15.7 % (11.7-14.2); Red Blood Cell Count 4.61 M/mm3 (4.30-5.90); White Blood Cell Count 35.37 K/mm3 (4.00-11.30)
--- NOTE | 2023-06-23 05:04 | NUR ---
SHIFT SUMMARY PT A&OX4 AND PLEASANT. NO ACUTE CHANGES. PT C/O GERNALIZED PAIN AND WAS MEDIATED PER EMAR. VSS. PT SATING AT ABOUT 93% ON 5L OF OXYGEN. CALLS APPROPRIATELY. BED IN LOWEST POSITION AND CALL LIGHT IN REACH.
[2023-06-23 05:16] LABS: Calcium, Blood 8.1 mg/dL (8.5-10.1); Creatinine, Blood 0.66 mg/dL (0.60-1.20); Potassium, Blood 3.9 mmol/L (3.5-5.5)
[2023-06-23 05:56] LABS: BAND PERCENT MAN 1 % (0-8); BASOPHILS PERCENT MAN 0 % (0-2); EOSINOPHILS PERCENT MAN 0 % (0-6); LYMPHOCYTES % ATYPICAL MANUAL 1 % (0-0); LYMPHOCYTES ABSOLUTE MAN 4.59 K/mm3 (0.84-5.20); LYMPHOCYTES PERCENT MAN 12 % (21-46); METAMYELOCYTE PERCENT MAN 2 % (0-0); MONOCYTES ABSOLUTE MAN 0.35 K/mm3 (0.16-1.47); MONOCYTES PERCENT MAN 1 % (4-13); MYELOCYTE PERCENT MAN 2 % (0-0); SEG NEUTROPHILS PERCENT MAN 81 % (41-73); TOTAL CELLS COUNTED 100
[2023-06-23 07:28] VITALS: BP 125/68
[2023-06-23] MEDS ORDERED: Ondansetron 4 MG SoluTab MM ONE (09:00)
[2023-06-23] MEDS ORDERED: Ondansetron 4 MG SoluTab MM PRN (09:00)
[2023-06-23] MEDS ORDERED: Pantoprazole Sodium 20 MG Tab PO SCH (09:00)
[2023-06-23] MEDS ORDERED: Tiotropium Bromide 2.5 MCG/ACT MIST INHAL (10 ACT/4 GM) INH SCH (10:20)
--- NOTE | 2023-06-23 11:01 | NUR ---
PATIENT HAD REQUESTED TO WAIT A WHILE ON REST OF AM MEDS AFTER OXYCODONE AND TERRIE MADERA THIS AM DUE TO HEADACHE, PAIN AND NAUSEA.
[2023-06-23 15:50] VITALS: BP 109/65
[2023-06-23 17:44] LABS: Source, Urine Clean Catch
[2023-06-23 18:19] LABS: Appearance, Urine Clear (Clear); Bilirubin, Urine Neg (Neg); Blood, Urine Neg (Neg); Color, Urine Yellow (P-Yellow); Glucose Qualitative, Urine Neg (Neg); Ketones, Urine Neg (Neg); Leukocyte Esterase, Urine Neg (Neg); Nitrite, Urine Neg (Neg); Protein, Urine Neg (Neg); Specific Gravity, Urine 1.015 (1.003-1.022); Urobilinogen, Urine NORM (Normal); pH, Urine 6.5 (5.0-8.0)
--- NOTE | 2023-06-23 18:58 | NUR ---
PATIENT WITH HEADACHE AND NAUSEA TODAY MEDICATED PER EMAR WITH SOME RELIEF ALTHOUGH SOME NAUSEA AND MIGRAINE STILL PERSIST. PATIENT IS ABLE TO EAT HIS BREAKFAST AND LUNCH TODAY. LUNGS CLEAR THIS EVENING ON FOLLOW UP. PATIENT WANTED SHOWER THIS AM HOWEVER AID WENT IN SEVERAL TIMES TO OFFER SHOWER AND PATIENT REFUSED DUE TO NAPPING AT THAT TIME. BED IN LOW POSITION, CALL LIGHT IN REACH. PATIENT ABLE TO MAKE NEEDS KNOWN.
--- NOTE | 2023-06-23 19:20 | NUR ---
shift summary patient with headache and nausea today, medicated per emar with some relief in making headache and nausea less but still present. patient was able to eat breakfast and lunch. currently eating dinner. lung sounds follow up this evening are clear. patient continues to sat above 93% on 5lpm nasal canula. he states he does get these migraine often and nothing else helps besides oxycodone. bed in in low position, call light in reach. patient able to make needs known.
[2023-06-23 19:27] VITALS: BP 122/72
[2023-06-24 03:26] VITALS: BP 115/78
--- NOTE | 2023-06-24 04:32 | NUR ---
SHIFT SUMMARY PT A&OX4. NO ACUTE CHANGES. PT DENIED FEELING NAUSEAS BUT DID C/O PAIN. MEDICATED PER EMAR. PT ABLE TO SLEEP ON AND OFF T/O NIGHT. VSS. CONTINUING OXYGEN AT 5L/MIN AND SATING AROUND 95%. BED IN LOWEST POSITION AND CALL LIGHT IN REACH.
[2023-06-24 04:59] LABS: BASOPHILS ABSOLUTE AUTO 0.11 K/mm3 (0.00-0.23); BASOPHILS PERCENT AUTO 0 % (0-2); EOSINOPHILS ABSOLUTE AUTO 0.02 K/mm3 (0.00-0.68); EOSINOPHILS PERCENT AUTO 0 % (0-6); Hematocrit 38.5 % (37.0-53.0); Hemoglobin 12.3 g/dL (13.5-17.5); IMMATURE GRAN PERCENT AUTO 5 % (0-1); LYMPHOCYTES ABSOLUTE AUTO 2.33 K/mm3 (0.84-5.20); LYMPHOCYTES PERCENT AUTO 8 % (21-46); MONOCYTES ABSOLUTE AUTO 1.36 K/mm3 (0.16-1.47); MONOCYTES PERCENT AUTO 5 % (4-13); Mean Corpuscular HGB 27.6 pg (26.0-34.0); Mean Corpuscular HGB Conc 31.9 g/dL (31.5-36.5); Mean Corpuscular Volume 86 fL (80-100); Mean Platelet Volume 9.3 fL (9.1-12.4); NEUTROPHILS ABSOLUTE AUTO 22.35 K/mm3 (1.96-9.15); NEUTROPHILS PERCENT AUTO 81 % (41-73); Platelet Count 427 K/mm3 (150-400); RDW Coefficient Variation 15.8 % (11.7-14.2); RDW Standard Deviation 49.6 fL (35.1-46.3); Red Blood Cell Count 4.46 M/mm3 (4.30-5.90); White Blood Cell Count 27.67 K/mm3 (4.00-11.30)
[2023-06-24 05:33] LABS: Albumin, Blood 2.4 g/dL (3.4-5.0); Anion Gap 2 mmol/L (6-16); Blood Urea Nitrogen 24 mg/dL (8-24); Bun/Creatinine Ratio 36.3 (12.0-20.0); CO2, Blood 28 mmol/L (21-32); Calcium, Blood 7.9 mg/dL (8.5-10.1); Chloride, Blood 105 mmol/L (98-108); Creatinine, Blood 0.66 mg/dL (0.60-1.20); Glomerular Filtration Rate 97 (60-); Glucose, Blood 104 mg/dL (70-99); Phosphorus, Blood 3.2 mg/dL (2.5-4.9); Sodium, Blood 135 mmol/L (136-145)
[2023-06-24 05:51] LABS: BAND PERCENT MAN 2 % (0-8); BASOPHILS PERCENT MAN 0 % (0-2); EOSINOPHILS PERCENT MAN 0 % (0-6); LYMPHOCYTES ABSOLUTE MAN 1.66 K/mm3 (0.84-5.20); LYMPHOCYTES PERCENT MAN 6 % (21-46); METAMYELOCYTE ABSOLUTE MAN 0.55 K/mm3 (0.00-0.00); METAMYELOCYTE PERCENT MAN 2 % (0-0); MONOCYTES ABSOLUTE MAN 0.55 K/mm3 (0.16-1.47); MONOCYTES PERCENT MAN 2 % (4-13); SEG NEUTROPHILS PERCENT MAN 88 % (41-73); TOTAL CELLS COUNTED 100
[2023-06-24 07:20] VITALS: BP 133/72
--- NOTE | 2023-06-24 09:16 | NUR ---
PT IN WORKING WITH PATIENT, OOB IN CHAIR
[2023-06-24 15:28] VITALS: BP 114/71
--- NOTE | 2023-06-24 17:09 | NUR ---
NO ACUTES CHANGES, ST EVAL ORDERED FOR 06/25/2023, PATIENT REPORTS SWALLOWING PROBLEMS AT TIMES. SWALLOW PRECAUTIONS ON, NO CHANGE IN DIET. PATIENT DENIED NEED FOR PRN PAIN MEDICATIONS, WORKED WITH PT, OOB IN CHAIR TODAY, EASILY SOB AND WEAK. PATIENT HAS NOT HAD A BM SINCE THE AND REPORTS THIS IS HIS NORM AND DOES NOT WANT BOWEL PREP MEDICATIONS. LS COARSE, FINE CRACKLE, RHONCHI, WEAK COUGH, SATS 94% ON 5L O2, NO FAMILY VISITED TODAY, CALL LIGHT WITH IN REACH, WILL RELAY TO PM RN
[2023-06-24 19:44] VITALS: BP 111/68
[2023-06-25 02:48] VITALS: BP 119/73
--- NOTE | 2023-06-25 04:22 | NUR ---
SHIFT SUMMARY. PATIENT IS ALERT AND ORIENTED. PATIENT WEAK AND SOB WITH EXERTION. PATIENT USING THE URINAL AT BEDSIDE. ASKED PATIENT IF HE HAD A BM TODAY HIS LAST CHARTED BM WAS ON 06/17/23; PATIENT QUICKLY ANSWERED BACK "ITS NONE OF YOUR BUSINESS, I TAKE CARE OF IT ON MY OWN, AND I DONT WANT ANYTHING FOR IT". THIS RN ASKED PATIENT TO "PLEASE LET STAFF KNOW IF YOU HAVE A BM SO THAT WE CAN CHART IT"; PATIENT AGREED. PATIENTS PAIN ASSESSED AND MEDICATED PER EMAR WITH PRN MEDICATIONS X1. PATIENT HAS 5 L'S VIA NASAL CANNULA RUNNING WITH SATS >93%. PATIENTS BED IS LOCKED IN THE LOWEST POSITION WITH CALL LIGHT IN REACH. NO S/S OF DISTRESS NOTED AT THIS TIME. CARE IS ONGOING.
[2023-06-25 04:50] LABS: BASOPHILS ABSOLUTE AUTO 0.09 K/mm3 (0.00-0.23); BASOPHILS PERCENT AUTO 0 % (0-2); EOSINOPHILS ABSOLUTE AUTO 0.08 K/mm3 (0.00-0.68); EOSINOPHILS PERCENT AUTO 0 % (0-6); Hematocrit 39.1 % (37.0-53.0); Hemoglobin 12.5 g/dL (13.5-17.5); IMMATURE GRAN ABSOLUTE AUTO 1.01 K/mm3 (0.00-0.10); IMMATURE GRAN PERCENT AUTO 4 % (0-1); LYMPHOCYTES ABSOLUTE AUTO 2.95 K/mm3 (0.84-5.20); LYMPHOCYTES PERCENT AUTO 11 % (21-46); MONOCYTES ABSOLUTE AUTO 1.41 K/mm3 (0.16-1.47); MONOCYTES PERCENT AUTO 5 % (4-13); Mean Corpuscular Volume 88 fL (80-100); Mean Platelet Volume 9.3 fL (9.1-12.4); NEUTROPHILS ABSOLUTE AUTO 20.46 K/mm3 (1.96-9.15); NEUTROPHILS PERCENT AUTO 79 % (41-73); Platelet Count 415 K/mm3 (150-400); RDW Coefficient Variation 16.1 % (11.7-14.2); RDW Standard Deviation 51.2 fL (35.1-46.3); Red Blood Cell Count 4.47 M/mm3 (4.30-5.90)
[2023-06-25 07:43] VITALS: BP 115/76
[2023-06-25 09:01] VITALS: BP 114/74
[2023-06-25] MEDS ORDERED: Fluconazole 100 MG Tab PO ONE (14:35)
[2023-06-25 15:39] VITALS: BP 115/73
[2023-06-25] MEDS ORDERED: NS 1,000 ML IV SCH (17:15)
--- NOTE | 2023-06-25 18:36 | NUR ---
PATIENT IS ALERT AND ORIENTED AND COOPERATIVE WITH CARE. PATIENT STATES HE HASNT HAD A BM SIN 06/17/23 BUT THAT THIS IS NORMAL FOR HIM. DR. RED NOTIFIED OF THIS AND MIRALAX ORDERED BID. PATIENT C/O PAIN IN HIS MOUTH, THRUSH NOTED BY DR. RED. PATIENT ENCOURAGED TO DRINK WATER AND BRUSH HIS TEETH. HIS DAUGHTER VISITED THIS AFTERNOON. ON 5L O2 VIA NC. NO C/O SOB. STANDS AT THE BEDSIDE TO VOID. REFUSED TO SIT IN THE CHAIR TODAY. WILL CONTINUE TO MONITOR
[2023-06-25 19:16] VITALS: BP 117/71
[2023-06-25] MEDS ORDERED: Nystatin 100,000 Unit/ML Susp 5 ML UDC MT SCH (21:00)
[2023-06-25] MEDS ORDERED: Polyethylene Glycol 3350 17 gm PO SCH (21:00)
[2023-06-26 03:05] VITALS: BP 130/77
--- NOTE | 2023-06-26 04:37 | NUR ---
SHIFT SUMMARY PT A&OX4 AND ANSWERS QUESTIONS APPROPRIATELY. PT GIVEN SCHEDULED AND PRN MEDICATION FOR PAIN. PT RECEIVED HS MEDICATIONS. PT SLEPT THROUGH MOST OF SHIFT WITH EYES CLOSED AND RESPIRATIONS EVEN AND UNLABORED. VSS, NO COMPLAINTS OF CP OR SOB. NO ACUTE EVENTS AT THIS TIME. PT CONTINENT WITH URINAL. PT LEFT IN A POSITION OF SAFETY WITH FALL PRECAUTIONS IN PLACE AND CALL LIGHT IN REACH.
[2023-06-26 05:52] LABS: BASOPHILS ABSOLUTE AUTO 0.06 K/mm3 (0.00-0.23); BASOPHILS PERCENT AUTO 0 % (0-2); EOSINOPHILS ABSOLUTE AUTO 0.04 K/mm3 (0.00-0.68); EOSINOPHILS PERCENT AUTO 0 % (0-6); Hemoglobin 12.9 g/dL (13.5-17.5); IMMATURE GRAN ABSOLUTE AUTO 0.66 K/mm3 (0.00-0.10); IMMATURE GRAN PERCENT AUTO 3 % (0-1); LYMPHOCYTES ABSOLUTE AUTO 3.09 K/mm3 (0.84-5.20); LYMPHOCYTES PERCENT AUTO 13 % (21-46); MONOCYTES ABSOLUTE AUTO 1.58 K/mm3 (0.16-1.47); MONOCYTES PERCENT AUTO 7 % (4-13); Mean Corpuscular HGB Conc 32.3 g/dL (31.5-36.5); Mean Corpuscular Volume 87 fL (80-100); Mean Platelet Volume 9.4 fL (9.1-12.4); NEUTROPHILS PERCENT AUTO 77 % (41-73); Platelet Count 421 K/mm3 (150-400); RDW Coefficient Variation 15.8 % (11.7-14.2); RDW Standard Deviation 49.5 fL (35.1-46.3); Red Blood Cell Count 4.61 M/mm3 (4.30-5.90); White Blood Cell Count 23.93 K/mm3 (4.00-11.30)
[2023-06-26 06:43] LABS: Bun/Creatinine Ratio 30.5 (12.0-20.0); Calcium, Blood 8.2 mg/dL (8.5-10.1); Creatinine, Blood 0.69 mg/dL (0.60-1.20); Potassium, Blood 3.8 mmol/L (3.5-5.5)
[2023-06-26 07:41] VITALS: BP 125/79
--- NOTE | 2023-06-26 08:00 | NUR ---
Pt laying in bed awake a/o4, pleasant and cooperataive with care, follows commands well, reports pain at his normal baseline at 7/10, asking for pain meds, lungs are clear t/o, dim in bases, resp even and unlabored, no cough noted at this time but reports productive cough of brown/deras sputum, currently on 5 liters 02 via n/c, hrr, no edema noted, ppp+1, cap refill <3 sec, vs stable, afebrile, piv is clear and patent, bt x4, abd flat soft nontender, reports regular bm's and did not want miralax, voids without diff via urinal, skin c/w/d, zakia villegas, call light in reach.
[2023-06-26] MEDS ORDERED: PredniSONE 20 MG Tab PO SCH (09:00)
[2023-06-26] MEDS ORDERED: Fluconazole 100 MG Tab PO SCH (09:00)
[2023-06-26 16:32] VITALS: BP 120/69
--- NOTE | 2023-06-26 18:05 | NUR ---
pt and ot worked with pt, he spent some time in the chair, he is very flat never takes his eyes off the tv while in room but is polite and thankful, daughter here to get things ready for discharge. no further changes this shift. call light in reach.
[2023-06-26 19:33] VITALS: BP 123/75
--- NOTE | 2023-06-26 23:00 | NUR ---
PT RESTING IN BED WITH EYES CLOSED AND RESPIRATIONS EVEN AND UNLABORED. PT MEDICATIONS HELD TO PROMOTE UNINTERUPTED REST, WILL ATTEMPT ADMINISTRATION WITH SCHEDULED MS CONTIN.
[2023-06-27 03:30] VITALS: BP 116/70
--- NOTE | 2023-06-27 04:20 | NUR ---
SHIFT SUMMARY PT A&OX4 AND ANSWERS QUESTIONS APPROPRIATELY. PT SLEPT MOST OF SHIFT WITH EYES CLOSED AND RESPIRATIONS EVEN AND UNLABORED. PT HS MEDICATION ADMINISTRATION POSTPONED TO ENCOURAGE UNINTERUPTED REST, MEDICATIONS ADMINISTERED WITH 0000 SCHEDULED DOSE OF MS CONTIN. NO ACUTE EVENTS AT THIS TIME. VSS, NO COMPLAINTS OF CP OR SOB. PT LEFT IN A POSITION OF SAFETY WITH APPROPRIATE FALL PRECAUTIONS IN PLACE AND CALL LIGHT IN REACH.
[2023-06-27 05:01] LABS: Hematocrit 40.4 % (37.0-53.0); Mean Corpuscular HGB 28.2 pg (26.0-34.0); Mean Corpuscular HGB Conc 32.2 g/dL (31.5-36.5); Mean Corpuscular Volume 88 fL (80-100); Mean Platelet Volume 9.2 fL (9.1-12.4); Platelet Count 393 K/mm3 (150-400); RDW Standard Deviation 50.9 fL (35.1-46.3); Red Blood Cell Count 4.61 M/mm3 (4.30-5.90)
[2023-06-27 05:39] LABS: Bun/Creatinine Ratio 34.9 (12.0-20.0); Calcium, Blood 8.1 mg/dL (8.5-10.1); Creatinine, Blood 0.69 mg/dL (0.60-1.20); Potassium, Blood 3.8 mmol/L (3.5-5.5)
[2023-06-27 07:08] VITALS: BP 108/79
[2023-06-27 15:52] VITALS: BP 118/74
--- NOTE | 2023-06-27 16:51 | NUR ---
SHIFT SUMMARY PT TITRATED DOWN TO 3L TODAY FROM 4L O2. WORKED WITH PHYSICAL THERAPY AND AMBULATED THE HALLWAY, DESAT TO 88% AT THE MOST WITH EXERTION. EASILY RECOVERED. PT REFUSING SNF. REQUESTING HH ON DISCHARGE IN ORDER TO GET HOME OT HIS ANIMALS. PT STATES HIS DAUGHTER IS AVAILABLE TO HELP HIM FOR AWHILE AT HOME WELL. NO OTHER ACUTE CHANGES IN ASSESSMENT AT THIS TIME. VS REVIEWED. CALL LIGHT IN REACH. DENIES OTHER NEEDS AT THIS TIME. MEDICATED ORDERED HIS SCHEDULED MORPHINE. PT STATES "I LIVE AT A 7/10 FOR PAIN".
[2023-06-27 20:23] VITALS: BP 124/81
[2023-06-28 04:47] VITALS: BP 123/78
[2023-06-28 04:50] LABS: BASOPHILS ABSOLUTE AUTO 0.03 K/mm3 (0.00-0.23); BASOPHILS PERCENT AUTO 0 % (0-2); EOSINOPHILS ABSOLUTE AUTO 0.03 K/mm3 (0.00-0.68); EOSINOPHILS PERCENT AUTO 0 % (0-6); Hematocrit 40.8 % (37.0-53.0); IMMATURE GRAN PERCENT AUTO 2 % (0-1); LYMPHOCYTES ABSOLUTE AUTO 3.22 K/mm3 (0.84-5.20); LYMPHOCYTES PERCENT AUTO 17 % (21-46); MONOCYTES ABSOLUTE AUTO 1.59 K/mm3 (0.16-1.47); MONOCYTES PERCENT AUTO 8 % (4-13); Mean Corpuscular HGB 27.7 pg (26.0-34.0); Mean Corpuscular HGB Conc 31.9 g/dL (31.5-36.5); Mean Corpuscular Volume 87 fL (80-100); Mean Platelet Volume 8.9 fL (9.1-12.4); NEUTROPHILS PERCENT AUTO 73 % (41-73); Platelet Count 387 K/mm3 (150-400); RDW Coefficient Variation 16.1 % (11.7-14.2); RDW Standard Deviation 50.7 fL (35.1-46.3); Red Blood Cell Count 4.69 M/mm3 (4.30-5.90); White Blood Cell Count 19.47 K/mm3 (4.00-11.30)
--- NOTE | 2023-06-28 05:09 | NUR ---
SHIFT SUMMARY. PATIENT IS ALERT AND ORIENTED. NO ACUTE CHANGES NOTED OVERNIGHT. PATIENT REFUSED MIRALAX POWDER; TOOK OTHER BOWEL CARE HS MEDICATIONS. PATIENT DENIES WATER AND ONLY ASKS FOR JUICE. PATIENT IS OF FLAT/WITHDRAWN AFFECT. MEDICATED WITH SCHEDULED PAIN MEDICATION PER EMAR. PATIENT MEDICATED WITH PRN PAIN MEDICATION X1 PER EMAR. PATIENT USES THE URINAL INDEPENDENTLY. NO ACUTE EVENTS NOTED OVERNIGHT. PATIENTS BED IS LOCKED IN THE LOWEST POSITION WITH CALL LIGHT IN REACH. NO S/S OF DISTRESS NOTED AT THIS TIME. CARE IS ONGOING.
[2023-06-28 05:46] LABS: Albumin, Blood 2.7 g/dL (3.4-5.0); Albumin/Globulin Ratio 0.8 (0.8-1.8); Bilirubin, Total 1.3 mg/dL (0.1-1.0); Calcium, Blood 8.5 mg/dL (8.5-10.1); Creatinine, Blood 0.7 mg/dL (0.60-1.20); Globulin, Blood 3.4 g/dL (2.2-4.0); Total Protein, Blood 6.1 g/dL (6.4-8.2)
[2023-06-28 07:40] VITALS: BP 122/75
[2023-06-28 15:33] VITALS: BP 106/68
--- NOTE | 2023-06-28 17:53 | NUR ---
DAYSHIFT SUMMARY Patient alert & oriented x3. Reported feeling better but not 100%. MD talked with pat, plan to stay another night, possible DC home tomorrow with homehealth. Vitals stable, Will continue plan of care.
[2023-06-28 19:59] VITALS: BP 104/65
[2023-06-28] MEDS ORDERED: DEXTROMETHORPHAN/BENZOCAINE 1 EACH LOZENGE MT SCH (20:00)
--- NOTE | 2023-06-29 03:21 | NUR ---
SHIFT SUMMERY, PT RESTING IN BED, MEDICATED FOR PAIN AT AROUND 0000, PT SLEEPING ON AND OFF, USING URINAL TO VOID IN. CALL LIGHT IN REACH.
[2023-06-29 04:22] VITALS: BP 116/75
[2023-06-29 04:58] LABS: BASOPHILS ABSOLUTE AUTO 0.02 K/mm3 (0.00-0.23); BASOPHILS PERCENT AUTO 0 % (0-2); EOSINOPHILS ABSOLUTE AUTO 0.01 K/mm3 (0.00-0.68); EOSINOPHILS PERCENT AUTO 0 % (0-6); Hematocrit 40.4 % (37.0-53.0); Hemoglobin 13.1 g/dL (13.5-17.5); IMMATURE GRAN ABSOLUTE AUTO 0.17 K/mm3 (0.00-0.10); IMMATURE GRAN PERCENT AUTO 1 % (0-1); LYMPHOCYTES ABSOLUTE AUTO 2.85 K/mm3 (0.84-5.20); LYMPHOCYTES PERCENT AUTO 16 % (21-46); MONOCYTES ABSOLUTE AUTO 1.65 K/mm3 (0.16-1.47); MONOCYTES PERCENT AUTO 9 % (4-13); Mean Corpuscular HGB 28.6 pg (26.0-34.0); Mean Corpuscular HGB Conc 32.4 g/dL (31.5-36.5); Mean Corpuscular Volume 88 fL (80-100); Mean Platelet Volume 9.2 fL (9.1-12.4); NEUTROPHILS ABSOLUTE AUTO 13.52 K/mm3 (1.96-9.15); NEUTROPHILS PERCENT AUTO 74 % (41-73); Platelet Count 382 K/mm3 (150-400); RDW Standard Deviation 52.3 fL (35.1-46.3); Red Blood Cell Count 4.58 M/mm3 (4.30-5.90); White Blood Cell Count 18.22 K/mm3 (4.00-11.30)
[2023-06-29 05:32] LABS: Albumin, Blood 2.7 g/dL (3.4-5.0); Albumin/Globulin Ratio 0.8 (0.8-1.8); Bilirubin, Total 0.8 mg/dL (0.1-1.0); Bun/Creatinine Ratio 26.1 (12.0-20.0); Calcium, Blood 8.5 mg/dL (8.5-10.1); Creatinine, Blood 0.81 mg/dL (0.60-1.20); Globulin, Blood 3.2 g/dL (2.2-4.0); Potassium, Blood 3.7 mmol/L (3.5-5.5); Total Protein, Blood 5.9 g/dL (6.4-8.2)
[2023-06-29 07:09] VITALS: BP 124/73
--- NOTE | 2023-06-29 08:12 | NUR ---
pt laying in bed watching tv, a/ox4, pleasant and cooperative with care, follows commands well, reports pain 7/10 otherwise doing ok, lungs are clear in [place], dim in bases, resp even and unlabored, no cough noted, reports occ productive cough of green sputum, currently on 3 liters 02 via high flow n/c, which is his baseline, hrr, no emema noted, ppp+1, cap refill <3 sec, vs stable, afebrile, piv site is clear and patent, btx4, abd flat soft nontender, voids via urinal, reports reg bm's and refused miralax, skin pale, c/w/d, maew, one person assist, call light in reach.
[2023-06-29] MEDS ORDERED: Diflucan100 MG PO (10:58)
[2023-06-29] MEDS ORDERED: PRED20 PO (11:05)
--- NOTE | 2023-06-29 11:48 | NUR ---
Pt has been discharged to home, iv x2 removed intact, went over discharge instructions with him, he verbalized understanding, faxed new meds to [facility] as he instructed. waiting for daughter to pick him up which he states should be here around 1230. call light in reach.
--- NOTE | 2023-06-29 12:53 | NUR ---
went over instructions with daughter, spoke to pt outpt care through [facility], she is picking up meds from pharmacy, pt will eat lunch then be ready to leave. call light in reach.
--- NOTE | 2023-06-29 14:15 | NUR ---
pt feels up to transfering to wheelchair and left via wheelchair with daughter and customer service leader in attendence.
== END 2023-06-29 14:15 | disposition home health service (06) | DRG 193 ==
LOC: ER 16:33 → MEDS 19:06 → ENPENDDIS 06-29 10:53 → MEDS 06-29 14:15
PROVIDERS: Emergency Medicine; Family Medicine; Hospitalist; Internal Medicine; ADMIT Internal Medicine
PROC: 5A0955A Assistance with Respiratory Ventilation, Greater than 96 Consecutive Hours, High Flow/Velocity Cannula (ICD-10-PCS; principal; 2023-06-16)
DX: J18.9 Pneumonia, unspecified organism (principal); J96.21 Acute and chronic respiratory failure with hypoxia; J96.22 Acute and chronic respiratory failure with hypercapnia; J44.1 Chronic obstructive pulmonary disease with (acute) exacerbation; J44.0 Chronic obstructive pulmonary disease with (acute) lower respiratory infection; Z11.52 Encounter for screening for COVID-19; B37.0 Candidal stomatitis; I10 Essential (primary) hypertension; G62.9 Polyneuropathy, unspecified; I73.9 Peripheral vascular disease, unspecified; I25.10 Atherosclerotic heart disease of native coronary artery without angina pectoris; E78.5 Hyperlipidemia, unspecified; F32.A Depression, unspecified; G71.00 Muscular dystrophy, unspecified; G89.29 Other chronic pain; K59.00 Constipation, unspecified; E86.0 Dehydration; Z99.81 Dependence on supplemental oxygen; Z98.49 Cataract extraction status, unspecified eye; Z90.49 Acquired absence of other specified parts of digestive tract; Z98.890 Other specified postprocedural states; Z87.891 Personal history of nicotine dependence; Z79.82 Long term (current) use of aspirin; Z79.899 Other long term (current) drug therapy
CPT/HCPCS: 0202U; 0241U; 36415; 71045; 71046; 80048; 80053; 80069; 81003; 82803; 83605; 83880; 84145; 85025; 85027; 87070; 87205; 93005; 93010; 94640; 94644; 94664; 94760; 94762; 96365; 96375; 97110; 97116; 97161; 97165; 97530; 99285-25; A9270; C9113; J0456; J0696; J2920; J2930; J7030; J7050; J7512

== ENCOUNTER 2024-04-05 16:43 | Observation (INO) | payer OTHER ==
[~2024-04-05] VITALS: Ht 182.9 cm; Wt 83.9 kg
[~2024-04-05 16:43] MED LIST changes: +Diflucan100 MG PO; +MORP30ER PO
[2024-04-05 17:31] LABS: BASOPHILS ABSOLUTE AUTO 0.05 K/mm3 (0.00-0.23); BASOPHILS PERCENT AUTO 0 % (0-2); EOSINOPHILS ABSOLUTE AUTO 0.04 K/mm3 (0.00-0.68); EOSINOPHILS PERCENT AUTO 0 % (0-6); Hematocrit 41.5 % (37.0-53.0); Hemoglobin 12.6 g/dL (13.5-17.5); IMMATURE GRAN ABSOLUTE AUTO 0.08 K/mm3 (0.00-0.10); IMMATURE GRAN PERCENT AUTO 1 % (0-1); LYMPHOCYTES ABSOLUTE AUTO 2.08 K/mm3 (0.84-5.20); LYMPHOCYTES PERCENT AUTO 13 % (21-46); MONOCYTES ABSOLUTE AUTO 1.18 K/mm3 (0.16-1.47); MONOCYTES PERCENT AUTO 7 % (4-13); Mean Corpuscular HGB 29.1 pg (26.0-34.0); Mean Corpuscular HGB Conc 30.4 g/dL (31.5-36.5); Mean Corpuscular Volume 96 fL (80-100); NEUTROPHILS ABSOLUTE AUTO 12.62 K/mm3 (1.96-9.15); NEUTROPHILS PERCENT AUTO 79 % (41-73); Platelet Count 238 K/mm3 (150-400); RDW Coefficient Variation 14.5 % (11.7-14.2); RDW Standard Deviation 50.6 fL (35.1-46.3); Red Blood Cell Count 4.33 M/mm3 (4.30-5.90); White Blood Cell Count 16.05 K/mm3 (4.00-11.30)
[2024-04-05 17:53] LABS: Free Thyroxine 1.1 ng/dL (0.70-1.60); Magnesium, Blood 2.3 mg/dL (1.6-2.4)
[2024-04-05 17:58] LABS: Albumin, Blood 3.4 g/dL (3.4-5.0); Albumin/Globulin Ratio 0.9 (0.8-1.8); Bilirubin, Total 0.6 mg/dL (0.1-1.0); Bun/Creatinine Ratio 16.7 (12.0-20.0); Calcium, Blood 8.7 mg/dL (8.5-10.1); Creatinine, Blood 1.86 mg/dL (0.60-1.20); Globulin, Blood 3.7 g/dL (2.2-4.0); Potassium, Blood 4.5 mmol/L (3.5-5.5); Thyroid Stimulating Hormone 2.39 uIU/mL (0.360-4.800); Total Protein, Blood 7.1 g/dL (6.4-8.2)
[2024-04-05 18:09] LABS: Source, Urine Clean Catch
[2024-04-05 18:23] LABS: Appearance, Urine Hazy (Clear); Blood, Urine 4+ (Neg); Color, Urine Amber (P-Yellow); Glucose Qualitative, Urine Neg (Neg); Ketones, Urine Neg (Neg); Leukocyte Esterase, Urine 1+ (Neg); Nitrite, Urine Neg (Neg); Protein, Urine 2+ (Neg); Specific Gravity, Urine 1.025 (1.003-1.022); Urobilinogen, Urine NORM (Normal)
[2024-04-05 18:33] LABS: Bilirubin, Urine 1+ (Neg)
[2024-04-05 18:34] LABS: Bacteria Many /hpf; Mucus Mod (0-Heavy); Squamous Epithelial Cells Rare /hpf (Few)
[2024-04-05 18:50] LABS: Influenza A, PCR NEGATIVE (NEGATIVE); Influenza B, PCR NEGATIVE (NEGATIVE); Resp Syncytial Virus, PCR NEGATIVE (NEGATIVE); SARS-Cov-2 (COVID-19) PCR, MMC NEGATIVE (NEGATIVE)
[2024-04-05] MEDS ORDERED: Ondansetron HCl 2 MG / ML 2ML Vial IV PRN (19:00)
[2024-04-05] MEDS ORDERED: NS 1,000 ML IV SCH (19:00)
[2024-04-05] MEDS ORDERED: FLU VACC TS2024-25(6MOS UP)/PF 45 MCG/0.5 ML SYRINGE IM SCH (19:00)
[2024-04-05] MEDS ORDERED: Enoxaparin 40 MG/0.4 ML SYR SC SCH (19:00)
[2024-04-05 20:54] VITALS: BP 113/78
[2024-04-05] MEDS ORDERED: Bisacodyl 5 MG TabEC PO PRN (23:20)
[2024-04-05] MEDS ORDERED: Artificial Tear Opth Oint 3.5 GM BOTHEYES PRN (23:20)
[2024-04-05] MEDS ORDERED: Polyethylene Glycol 3350 17 gm PO PRN (23:25)
--- NOTE | 2024-04-05 23:25 | NUR ---
PATIENT IS A NEW ADMIT FROM THE ED. AXO X4 AND SBA TRANSFER FROM [facility] TO BED. REPORTS HE WOULD LIKE TO BE BEDREST FOR THIS EVENING. USES ELECTRIC W/C AND FWW AT HOME. ON 3L O2 NC BASELINE. DENIE CHEST PAIN, SOB, AND N/V. REPORTED BACK PAIN. NO PAIN MEDS IN EMAR AT THIS TIME. NS INFUSING @ 75 mL/HR FROM THE ED. DENIES SYCOPE. TELEMETRY PLACED NSR 92. ORIENTED TO ROOM AND CALL LIGHT SYSTEM. DAUGHTER CALLED FROM [place] AND WILL BE DOWN MONDAY. LATONYA.
[2024-04-05] MEDS ORDERED: Albuterol HFA200 ACT/6.7 GM INH INH PRN (23:30)
[2024-04-05] MEDS ORDERED: Tiotropium Bromide 2.5 MCG/ACT MIST INHAL (10 ACT/4 GM) INH SCH (23:35)
[2024-04-06] MEDS ORDERED: OxyCODONE HCL 5 MG TAB PO PRN ×2 (00:05→13:35)
[2024-04-06 03:22] VITALS: BP 115/73
--- NOTE | 2024-04-06 04:13 | NUR ---
SHIFT SUMMARY PATIENT HAD NO ACUTE CHANGE. AXOX 4 AND BEDREST. DENIES CHEST PAIN, SOB, AND N/V. REPORTED CHRONIC BACK PAIN AND DR CARD ORDERED OXYCODONE 5 MG Q8 PRN AFTER REVIEWING LABS. ON 3L O2 NC BASELINE. PIV INTACT. NS INFUSING @ 75 mL/HR X ONE BAG. TELE MONITOR NSR 92. DR CARD AWARE OF LESS THAN PENCIL ERASER SIZE OPEN SORE ON BUTTOCK. PATIENT REPORTS DOESN'T SLEEP WELL AND TRIED SLEEP AIDS THAT KEEP HIM ASLEEP UP TO 48 HOURS IN THE PAST. CALL LIGHT IN REACH. BED IN LOWEST POSITION. WILL CONTINUE TO MONITOR UNTIL DAY SHIFT NURSE ASSUMES CARE.
[2024-04-06] MEDS ORDERED: Omeprazole 20 MG CapCR PO SCH (06:00)
[2024-04-06 06:07] LABS: BASOPHILS ABSOLUTE AUTO 0.04 K/mm3 (0.00-0.23); BASOPHILS PERCENT AUTO 0 % (0-2); EOSINOPHILS ABSOLUTE AUTO 0.21 K/mm3 (0.00-0.68); EOSINOPHILS PERCENT AUTO 2 % (0-6); Hematocrit 38.8 % (37.0-53.0); Hemoglobin 11.8 g/dL (13.5-17.5); IMMATURE GRAN ABSOLUTE AUTO 0.05 K/mm3 (0.00-0.10); IMMATURE GRAN PERCENT AUTO 0 % (0-1); LYMPHOCYTES ABSOLUTE AUTO 3.04 K/mm3 (0.84-5.20); LYMPHOCYTES PERCENT AUTO 25 % (21-46); MONOCYTES ABSOLUTE AUTO 1.08 K/mm3 (0.16-1.47); MONOCYTES PERCENT AUTO 9 % (4-13); Mean Corpuscular HGB 28.4 pg (26.0-34.0); Mean Corpuscular HGB Conc 30.4 g/dL (31.5-36.5); Mean Corpuscular Volume 93 fL (80-100); Mean Platelet Volume 9.3 fL (9.1-12.4); NEUTROPHILS ABSOLUTE AUTO 7.62 K/mm3 (1.96-9.15); NEUTROPHILS PERCENT AUTO 63 % (41-73); Platelet Count 262 K/mm3 (150-400); RDW Coefficient Variation 14.3 % (11.7-14.2); RDW Standard Deviation 49.3 fL (35.1-46.3); Red Blood Cell Count 4.16 M/mm3 (4.30-5.90); White Blood Cell Count 12.04 K/mm3 (4.00-11.30)
[2024-04-06 06:29] LABS: Albumin, Blood 3.1 g/dL (3.4-5.0); Albumin/Globulin Ratio 0.9 (0.8-1.8); Bilirubin, Total 0.5 mg/dL (0.1-1.0); Bun/Creatinine Ratio 24.4 (12.0-20.0); Calcium, Blood 7.9 mg/dL (8.5-10.1); Creatinine, Blood 0.98 mg/dL (0.60-1.20); Globulin, Blood 3.3 g/dL (2.2-4.0); Potassium, Blood 3.7 mmol/L (3.5-5.5); Total Protein, Blood 6.4 g/dL (6.4-8.2)
[2024-04-06 07:40] VITALS: BP 97/60
[2024-04-06] MEDS ORDERED: Lactobacil 2-S.Thermo-Bifido 1 1 Cap PO SCH (09:00)
[2024-04-06] MEDS ORDERED: Atenolol 25 MG Tab PO SCH (09:00)
[2024-04-06] MEDS ORDERED: Aspirin 81 MG Chew PO SCH (09:00)
[2024-04-06 10:57] VITALS: BP 114/60
[2024-04-06 11:02] VITALS: BP 101/57
--- NOTE | 2024-04-06 15:35 | NUR ---
SHIFT SUMMARY PT WOKE FOR SHIFT REPORT THIS AM, THEN GOING BACK TO SLEEP UNTIL BREAKFAST. PT VERY WEAK. PT/OT ORDERED. PT UP TO EOB TO USE URINAL. ORTHO VS DONE; SEE CHART. DR RED IN TO SEE PT AND DISCUSS PLAN OF CARE. MEDICATIONS ADJUSTED PER PT REQUEST. MEDICATED FOR C/O PAIN X1 TO PRESENT. PT'S DAUGHTER JUNO, FROM [place], UPDATED ON PT STATUS, PER PT REQUEST. RESTING QUIETLY WATCHING TV AT THIS TIME. CALL LT IN REACH.
[2024-04-06 19:39] VITALS: BP 115/63
[2024-04-06] MEDS ORDERED: Morphine Sulfate 30 MG TabCR PO SCH (21:00)
[2024-04-07 02:49] VITALS: BP 148/79
--- NOTE | 2024-04-07 04:12 | NUR ---
SHIFT SUMMARY PATIENT HAD NO ACUTE CHANGES. AXOX 4 AND BEDREST REPORTING STILL WEAK. DENIES CHEST PAIN, SOB, AND N/V. VSS/AFEBRILE. ON 3L O2 NC BASELINE. USES URINAL AT BEDSIDE. AWAKE MOST OF THE SHIFT. CALL LIGHT IN REACH. BED IN LOWEST POSITION. WILL CONTINUE TO MONITOR UNTIL DAY SHIFT NURSE ASSUMES CARE.
[2024-04-07 06:28] LABS: Hematocrit 35.6 % (37.0-53.0); Hemoglobin 11.4 g/dL (13.5-17.5); Mean Corpuscular Volume 91 fL (80-100); Mean Platelet Volume 9.4 fL (9.1-12.4); Platelet Count 266 K/mm3 (150-400); RDW Coefficient Variation 14.1 % (11.7-14.2); RDW Standard Deviation 46.5 fL (35.1-46.3); Red Blood Cell Count 3.93 M/mm3 (4.30-5.90); White Blood Cell Count 10.22 K/mm3 (4.00-11.30)
[2024-04-07 07:00] LABS: Bun/Creatinine Ratio 18.4 (12.0-20.0); Calcium, Blood 8.5 mg/dL (8.5-10.1); Creatinine, Blood 0.76 mg/dL (0.60-1.20)
[2024-04-07 07:28] VITALS: BP 155/84
--- NOTE | 2024-04-07 14:43 | NUR ---
PT AWAKE DURING SHIFT REPORT. AM MEDS GIVEN PER EMAR. PT REMAINED AWAKE TODAY, WATCHING TV. DR RED IN TO SEE PT AND DISCUSS PLAN OF CARE. PT ABLE TO D/C TO HOME. PT NOTIFIED DAUGHTER FOR P/U. D/C INSTRUCTIONS REVIEWED WITH PT; VERBALIZED UNDERSTANDING. NO [facility] MED[facility] TO [facility]. PT INSTRUCTED BY DR RED TO STOP TAKING [facility] HOME MEDICATION AND TO CK HIS BP DAILY. PT VERBALIZED UNDERSTANDING AND AGREEABLE TO PLAN. PT ABLE TO DRESS HIMSELF. DAUGHTER ASSISTED WITH GATHERING ALL BELONGINGS. PT ASSISTED TO CAR VIA W/C BY DAUGHTER, PER HER REQUEST.
== END 2024-04-07 12:36 | disposition home or self-care (01) ==
LOC: ER 16:43 → MEDS 16:44 → ERHOLD 16:44 → EDBEDREQ 19:55 → EDBEDREQTM 19:55 → MEDS 20:49
PROVIDERS: Internal Medicine; Student in an Organized Health Care Education/Training Program; ADMIT Internal Medicine
DX: N17.9 Acute kidney failure, unspecified (principal); R39.2 Extrarenal uremia; E86.0 Dehydration; I95.1 Orthostatic hypotension; J44.9 Chronic obstructive pulmonary disease, unspecified; J96.11 Chronic respiratory failure with hypoxia; N28.1 Cyst of kidney, acquired; I25.10 Atherosclerotic heart disease of native coronary artery without angina pectoris; G89.4 Chronic pain syndrome; K21.9 Gastro-esophageal reflux disease without esophagitis; F43.10 Post-traumatic stress disorder, unspecified; F31.81 Bipolar II disorder; E78.5 Hyperlipidemia, unspecified; G71.00 Muscular dystrophy, unspecified; I73.9 Peripheral vascular disease, unspecified; Z79.82 Long term (current) use of aspirin; Z79.899 Other long term (current) drug therapy; Z87.891 Personal history of nicotine dependence
CPT/HCPCS: 0241U; 36415; 71045; 76770; 80048; 80053; 81001; 83735; 83880; 84439; 84443; 84484; 85025; 85027; 87086; 93005; 93010; 94640; 94664; 94760; 96372; 97161; 97530; 99285-25; A9270; G0378; J1650; J7030

== ENCOUNTER 2025-03-24 16:21 | Inpatient (IN) | payer OTHER ==
[~2025-03-24] VITALS: Ht 182.9 cm; Wt 81.7 kg
[2025-03-24] MEDS ORDERED: Ondansetron HCl 2 MG / ML 2ML Vial IV ONE (17:15)
[2025-03-24] MEDS ORDERED: Ipratropium/Albuterol SulF 2.5-0.5MG/3 ML Amp INH ONE (17:15)
[2025-03-24] MEDS ORDERED: NS 1,000 ML IV SCH (17:15)
[2025-03-24 17:21] LABS: BASOPHILS ABSOLUTE AUTO 0.02 K/mm3 (0.00-0.23); BASOPHILS PERCENT AUTO 0 % (0-2); EOSINOPHILS ABSOLUTE AUTO 0.00 K/mm3 (0.00-0.68); EOSINOPHILS PERCENT AUTO 0 % (0-6); Hematocrit 45.5 % (37.0-53.0); Hemoglobin 14.0 g/dL (13.5-17.5); IMMATURE GRAN ABSOLUTE AUTO 0.08 K/mm3 (0.00-0.10); IMMATURE GRAN PERCENT AUTO 1 % (0-1); LYMPHOCYTES ABSOLUTE AUTO 1.23 K/mm3 (0.84-5.20); LYMPHOCYTES PERCENT AUTO 8 % (21-46); MONOCYTES ABSOLUTE AUTO 0.50 K/mm3 (0.16-1.47); MONOCYTES PERCENT AUTO 3 % (4-13); Mean Corpuscular HGB Conc 30.8 g/dL (31.5-36.5); Mean Corpuscular Volume 89 fL (80-100); NEUTROPHILS ABSOLUTE AUTO 12.90 K/mm3 (1.96-9.15); NEUTROPHILS PERCENT AUTO 88 % (41-73); NRBC ABSOLUTE 0.00 K/mm3 (0.00-0.02); NRBC Auto 0.0 /100 WBC (0.0-0.2); Platelet Count 351 K/mm3 (150-400); RDW Coefficient Variation 14.0 % (11.7-14.2); RDW Standard Deviation 46.2 fL (35.1-46.3)
[2025-03-24 17:44] LABS: Alanine Aminotransfer (ALT/SGP 18.0 U/L (12-78); Albumin, Blood 4.0 g/dL (3.4-5.0); Albumin/Globulin Ratio 1.0 (0.8-1.8); Anion Gap 8.0 mmol/L (3-11); Aspartate Aminotrans (AST/SGOT 15.0 U/L (12-37); Bilirubin, Total 1.0 mg/dL (0.1-1.0); Blood Urea Nitrogen 29.0 mg/dL (8-24); CO2, Blood 31.0 mmol/L (21-32); Calcium, Blood 9.7 mg/dL (8.5-10.1); Chloride, Blood 104.0 mmol/L (98-108); Creatinine, Blood 0.95 mg/dL (0.60-1.20); Globulin, Blood 3.9 g/dL (2.2-4.0); Glucose, Blood 136.0 mg/dL (70-99); Potassium, Blood 3.5 mmol/L (3.5-5.5); Sodium, Blood 139.0 mmol/L (136-145); Total Protein, Blood 7.9 g/dL (6.4-8.2)
[2025-03-24 18:23] LABS: CORONAVIRUS COVID-19 AG Negative (NEGATIVE)
[2025-03-24 21:59] LABS: Source, Urine Clean Catch
[2025-03-24 22:24] LABS: Bilirubin, Urine Neg (Neg); Glucose Qualitative, Urine Neg (Neg); Ketones, Urine 3+ (Neg); Leukocyte Esterase, Urine Neg (Neg); Protein, Urine 2+ (Neg); Specific Gravity, Urine 1.005 (1.003-1.022); Urobilinogen, Urine NORM (Normal)
[2025-03-24 22:34] LABS: Color, Urine Yellow (P-Yellow)
[2025-03-24 22:35] LABS: White Blood Cells, Urine 0-2 /hpf (0-5)
[2025-03-24] MEDS ORDERED: FLU VACC TS2025(65UP)/MF59C/PF 45 MCG/0.5 ML SYRINGE IM SCH (22:40)
[2025-03-24] MEDS ORDERED: Albuterol 2.5 MG/3 ML VIAL INH PRN (22:45)
[2025-03-24] MEDS ORDERED: Ondansetron HCl 2 MG / ML 2ML Vial IV PRN (22:45)
[2025-03-24] MEDS ORDERED: Metoclopramide HCl 5MG / ML 2ML Vial IV PRN (22:45)
[2025-03-24] MEDS ORDERED: Ketorolac Tromethamine 15mg Vial IV PRN (22:55)
[2025-03-25 03:40] VITALS: BP 151/79
[2025-03-25 06:23] LABS: BASOPHILS ABSOLUTE AUTO 0.03 K/mm3 (0.00-0.23); BASOPHILS PERCENT AUTO 0 % (0-2); EOSINOPHILS ABSOLUTE AUTO 0.00 K/mm3 (0.00-0.68); EOSINOPHILS PERCENT AUTO 0 % (0-6); Hematocrit 41.4 % (37.0-53.0); Hemoglobin 13.0 g/dL (13.5-17.5); IMMATURE GRAN ABSOLUTE AUTO 0.10 K/mm3 (0.00-0.10); IMMATURE GRAN PERCENT AUTO 1 % (0-1); LYMPHOCYTES ABSOLUTE AUTO 2.29 K/mm3 (0.84-5.20); LYMPHOCYTES PERCENT AUTO 14 % (21-46); MONOCYTES ABSOLUTE AUTO 1.40 K/mm3 (0.16-1.47); MONOCYTES PERCENT AUTO 8 % (4-13); Mean Corpuscular HGB Conc 31.4 g/dL (31.5-36.5); Mean Corpuscular Volume 90 fL (80-100); NEUTROPHILS ABSOLUTE AUTO 13.07 K/mm3 (1.96-9.15); NEUTROPHILS PERCENT AUTO 77 % (41-73); NRBC ABSOLUTE 0.00 K/mm3 (0.00-0.02); NRBC Auto 0.0 /100 WBC (0.0-0.2); Platelet Count 332 K/mm3 (150-400); RDW Coefficient Variation 14.2 % (11.7-14.2); RDW Standard Deviation 46.5 fL (35.1-46.3)
[2025-03-25 06:48] LABS: Alanine Aminotransfer (ALT/SGP 15.0 U/L (12-78); Albumin, Blood 3.5 g/dL (3.4-5.0); Albumin/Globulin Ratio 1.0 (0.8-1.8); Anion Gap 9.0 mmol/L (3-11); Aspartate Aminotrans (AST/SGOT 20.0 U/L (12-37); Bilirubin, Total 1.2 mg/dL (0.1-1.0); Blood Urea Nitrogen 26.0 mg/dL (8-24); CO2, Blood 25.0 mmol/L (21-32); Calcium, Blood 8.4 mg/dL (8.5-10.1); Chloride, Blood 110.0 mmol/L (98-108); Creatinine, Blood 0.82 mg/dL (0.60-1.20); Globulin, Blood 3.5 g/dL (2.2-4.0); Glucose, Blood 114.0 mg/dL (70-99); Magnesium, Blood 2.1 mg/dL (1.6-2.4); Potassium, Blood 3.2 mmol/L (3.5-5.5); Sodium, Blood 141.0 mmol/L (136-145); Total Protein, Blood 7.0 g/dL (6.4-8.2)
[2025-03-25 07:19] VITALS: BP 138/74
[2025-03-25] MEDS ORDERED: Artificial Tear Opth Oint 3.5 GM BOTHEYES PRN (07:25)
[2025-03-25] MEDS ORDERED: Albuterol HFA200 ACT/6.7 GM INH INH PRN (07:35)
--- NOTE | 2025-03-25 07:43 | NUR ---
SHIFT SUMMARY PT ADMITTED TO ROOM 326 FROM ER. PT ORIENTED TO ROOM. A&OX4. ABLE TO MAKE NEEDS KNOWN. MEDICATED PER EMAR FOR NAUSEA AND PAIN. NG TUBE INSERTED PER ORDERS. PT TOLERATED WELL. PT REMAINS ON 3 LPM O2 VIA NC WHICH IS HIS BASELINE. O2 SATS HAVE REMAINED IN THE MID 90'S. PT USES URINAL APPROPRIATELY. PT WAS ABLE TO REST OFF AND ON THROUGHOUT SHIFT BUT IS WORRIED ABOUT THE PLAN MOVING FORWARD. THIS RN REASSURED HIM THAT HE SHOULD BE ABLE TO DISCUSS WITH THE DOCTOR WHAT THE PLAN IS WHEN HE COMES TO SEE HIM. PT V/U AND REASSURANCE. PT CURRENTLY RESTING IN BED AT LOWEST POSITION WITH CALL LIGHT WITHIN REACH.
[2025-03-25] MEDS ORDERED: Enoxaparin 40 MG/0.4 ML SYR SC SCH (09:00)
--- NOTE | 2025-03-25 13:18 | NUR ---
assumed care of pt a/o x 4 pt upset having to be here and frustrated over NGT, currently has no c/o pain nor nausea. NGT draining small amount of green bile, at LIS, floor refinisher Kourtney in to flush and replace suction mount due to lack of output. there is no sign that NGT is clogged. will cont to monitor. 1250 SBFT ordered for pt pt tasken down for xrays.
--- NOTE | 2025-03-25 13:32 | NUR ---
1330 pt returned from xray back in bed no c/o pain NGT no suction at this point, waitn for repeat xray.
[2025-03-25 16:21] VITALS: BP 166/88
[2025-03-25 19:16] VITALS: BP 145/81
--- NOTE | 2025-03-25 19:34 | NUR ---
1345 PT WAS ASSISTED TO BATHROOM PT WAS ATTEMPTING TO USE BATHROOM AND STATED HE COULD NOT BUT NEEDED HELP WIPING. WHILE WIPING PT I NOTED HARD STOOL IN RECTUM, I PROCEEDED TO DISIMPACT PT, SOON AFTER PT WAS HAVING LARGE AMOUNT OF UNCONTROLLED BOWEL MOVMENTS ABOUT EVERY 5 MIN. PT STOOL WAS HARD WITH LIQUID AND CONT TO JUST LIQUID AND IS NOW CLR. PT STATES TO FEEL MUCH BETTER, ABD IS SOFT NON DISTENDED. ORDER WAS OBTAINED TO DC NGT, AND ADVANCE DIET. XRAY OF ABD FOR BOWEL STUDY DONE. PT QUIETLY LAYING IN BED.
[2025-03-26 03:01] VITALS: BP 159/83
--- NOTE | 2025-03-26 03:55 | NUR ---
SHIFT SUMMARY A&OX4. OCCASIONALLY FORGETFUL. HE FORGETS TO USE HIS CALL LIGHT AT TIMES. HE HAS HAD SOME GENERALIZED PAIN AND WAS MEDICATED PER EMAR. HE HAS BEEN FAIRLY INDEPENDENT TO THE BSC. HE CONTINUES TO WEAR 3 LITERS O2 VIA NC. HIS SOB INCREASES WITH EXCERTION. EDUCATED ON O2 SAT GOALS WITH COPD. REFERRED TO RESPIRATORY THERAPY AND GAVE THE PT A FAN FOR BETTER AIR FLOW. HE HAS WHAT HE CLAIMS A NEW WET PRODUCTIVE COUGH. WILL REPORT TO DAY SHIFT TO INFORM PROVIDER WITH ROUNDS. CURRENTLY THE PT IS SITTING IN BED WITH HOB ELEVATED, RAILS X2 AND CALL LIGHT WITHIN REACH RECEIVING A BREATHING TREATMENT FROM RESPIRATORY THERAPY.
[2025-03-26 06:22] LABS: Hematocrit 37.6 % (37.0-53.0); Hemoglobin 11.7 g/dL (13.5-17.5); Mean Corpuscular HGB Conc 31.1 g/dL (31.5-36.5); Mean Corpuscular Volume 90 fL (80-100); NRBC ABSOLUTE 0.00 K/mm3 (0.00-0.02); NRBC Auto 0.0 /100 WBC (0.0-0.2); Platelet Count 269 K/mm3 (150-400); RDW Coefficient Variation 14.1 % (11.7-14.2); RDW Standard Deviation 45.8 fL (35.1-46.3)
[2025-03-26 06:49] LABS: Albumin, Blood 3.2 g/dL (3.4-5.0); Anion Gap 11 mmol/L (3-11); Blood Urea Nitrogen 21 mg/dL (8-24); CO2, Blood 24 mmol/L (21-32); Calcium, Blood 8.3 mg/dL (8.5-10.1); Chloride, Blood 111 mmol/L (98-108); Creatinine, Blood 0.84 mg/dL (0.60-1.20); Glucose, Blood 98 mg/dL (70-99); Phosphorus, Blood 2.3 mg/dL (2.5-4.9); Potassium, Blood 2.7 mmol/L (3.5-5.5); Sodium, Blood 143 mmol/L (136-145)
[2025-03-26 07:18] VITALS: BP 165/79
[2025-03-26 14:37] VITALS: BP 164/84
[2025-03-26] MEDS ORDERED: POTCHL20ER PO (14:47)
--- NOTE | 2025-03-26 16:24 | NUR ---
DISCHARGE NOTE PT D/C HOME AT 1620. PT PROVIDED W/ VERBAL AND WRITTEN INSTRUCTIONS AND REPORTED UNDERSTANDING. PT A&OX4, AMB W/ ASSIST, TOLERATING PO, VOIDING, AND DENIED PAIN. BELONGINGS WERE RETURNED. HARD SCRIPT GIVEN TO PT, COPY PLACED IN CHART. PT ESCOURTED OUT VIA W/C BY CASSANDRA SANFORD.
== END 2025-03-26 16:48 | disposition home or self-care (01) | DRG 389 ==
LOC: ER 16:21 → MEDS 22:37 → ERHOLD 22:37 → MEDS 03-25 03:36
PROVIDERS: Emergency Medicine; ADMIT Student in an Organized Health Care Education/Training Program
PROC: 0D9670Z Drainage of Stomach with Drainage Device, Via Natural or Artificial Opening (ICD-10-PCS; principal; 2025-03-24)
DX: K56.51 Intestinal adhesions [bands], with partial obstruction (principal); J96.11 Chronic respiratory failure with hypoxia; J44.9 Chronic obstructive pulmonary disease, unspecified; I10 Essential (primary) hypertension; E78.5 Hyperlipidemia, unspecified; I73.9 Peripheral vascular disease, unspecified; G71.00 Muscular dystrophy, unspecified; Z66 Do not resuscitate; I25.10 Atherosclerotic heart disease of native coronary artery without angina pectoris; G89.29 Other chronic pain; M54.9 Dorsalgia, unspecified; D72.829 Elevated white blood cell count, unspecified; E86.9 Volume depletion, unspecified; Z99.81 Dependence on supplemental oxygen; Z90.49 Acquired absence of other specified parts of digestive tract; Z79.82 Long term (current) use of aspirin; Z79.891 Long term (current) use of opiate analgesic; Z79.52 Long term (current) use of systemic steroids; Z87.891 Personal history of nicotine dependence; Z95.820 Peripheral vascular angioplasty status with implants and grafts; Z79.51 Long term (current) use of inhaled steroids
CPT/HCPCS: 36415; 71045; 74177; 74250; 80053; 80069; 81001; 82947; 83735; 84132; 84484; 85025; 85027; 87428-QW; 93005; 93010; 94640; 94664; 94762; 96374-59; 99285-25; A9270; J1650; J1885; J2405; J2765; J3480; J7030; J7050; J7120; Q9967